=== PATIENT | female | born 1975 | race Caucasian/White ===

== ENCOUNTER 2018-02-28 08:31 | Day surgery (SDC) | payer OTHER, MEDICAID, SELFPAY ==
--- NOTE | 2018-02-28 | IMM_PTH ---
PATIENT: ALVARO VITAL LOC: EN U#:[id number] AGE/SX: 42/F ROOM: RE02/28/[address]: Dr. Antonia Minor MD : 1975 BED: DIS: 02/28/2018 SPEC #: [id number] RECD: 03/01/18 11:00 STATUS: MARICARMEN REZoila #: [id number] MAXWELL: 02/28/18 00:[address]: Antonia Minor DEPT: IMMUNOHISTOCHEMISTRY RECD BY: Glo Cisneros ENTERED: 03/01/18 11:00 SP TYPE: IMMUNO OTHR DR: Dr. Carlos Shultz MD Tissues: A - Stomach, NOS Procedures: H Pylori (initial) PHYSICIAN & INSTITUTION [place] [id number] SPECIMEN INFORMATION: Tissue Source: A ? Antrum biopsy Clinical Info: Gastric reflux, abdomen cramping, diarrhea Specimen Number: [id number] CPT code: 02098 METHODOLOGY: Deparaffinized sections of prefer/formalin-fixed tissue or PAP/DQ stained slides are incubated with monoclonal/polyclonal antibodies/oligonucleotide probes. Localization is made via biotin free immunoperoxidase method. Appropriate controls are performed and reacted as expected. Results on target cell population are indicated in the following table: RESULTS: ANTIBODY / CLONE RESULT Block A H Pylori (polyclonal) negative These tests were developed and their performance characteristics determined by [facility]. They may not have been cleared or approved by the U.S. Food and Drug Administration. The FDA has determined that such clearance or approval is not necessary. INTERPRETATION: A. Antrum, biopsy: Negative for Helicobacter pylori organisms. SJ:claritza 03/02/18
--- NOTE | 2018-02-28 | GASB_PTH ---
PATIENT: ALVARO VITAL LOC: EN U#:[id number] AGE/SX: 42/F ROOM: RE02/28/[address]: Dr. Antonia Minor MD : 1975 BED: DIS: 02/28/2018 SPEC #: [id number] RECD: 02/28/18 11:36 STATUS: MARICARMEN LIZZ #: [id number] MAXWELL: 02/28/18 00:[address]: Antonia Minor DEPT: SURGICAL PATHOLOGY RECD BY: Jabari Majano ENTERED: 02/28/18 11:37 SP TYPE: Gastric Bx OTHR DR: Dr. Carlos Shultz MD Tissues: A - Gastric mucous membrane B - Gastric mucous membrane C - Descending colon D - Sigmoid colon biopsy E - Rectum, NOS Procedures: Special Stain Group II Surgery Specimen Level IV Alcian Blue/PAS (control) HEADER OPERATION: EGD with biopsy; colonoscopy with biopsies PRE-OP DIAGNOSIS: Gastric reflux, abdomen cramping, diarrhea TISSUE SUBMITTED: A ? Antrum biopsy for H. pylori and path, B ? GE junction, C ? Descending colon biopsy, D ? Sigmoid biopsy, E ? Rectal biopsy MICROSCOPIC DIAGNOSIS A. Antrum, biopsy: Mild gastritis. B. GE junction, biopsy: Fragment of gastric mucosa with chronic inflammation. Intestinal metaplasia (goblet cell metaplasia) is not identified. See comment. C. Descending colon, biopsy: Fragment of colonic mucosa, no pathologic diagnosis. D. Sigmoid colon, biopsy: Fragment of colonic mucosa, no pathologic diagnosis. E. Rectal biopsy: Fragment of colonic mucosa, no pathologic diagnosis. SJ:claritza 03/01/18 COMMENT A. The results of immunohistochemistry for Helicobacter pylori will be reported separately ([id number]). B. Alcian blue/PAS stain with matched control is used in the evaluation of the specimen. MICROSCOPIC DESCRIPTION Slides are reviewed. A. The specimen shows fragments of gastric mucosa with chronic inflammatory cell infiltrates in the lamina propria consisting of lymphocytes and plasma cells, consistent with mild chronic gastritis. A minute lymphoid aggregate is also noted, favor benign. GROSS DESCRIPTION A - Received in fixative is one container labeled with the patient's name and designated antrum biopsy. The specimen consists of one irregular fragment of light muhammad soft tissue that measures 0.5 x 0.3 x 0.1 cm. The specimen is totally submitted in one cassette. B - Received in fixative is one container labeled with the patient's name and designated GE junction. The specimen consists of one irregular fragment of light muhammad soft tissue that measures 0.3 x 0.3 x 0.1 cm. The specimen is totally submitted in one cassette. C - Received in fixative is one container labeled with the patient's name and designated descending colon biopsy. The specimen consists of one irregular fragment of light muhammad soft tissue that measures 0.3 x 0.3 x 0.1 cm. The specimen is totally submitted in one cassette. D - Received in fixative is one container labeled with the patient's name and designated sigmoid biopsy. The specimen consists of one irregular fragment of light muhammad soft tissue that measures 0.5 x 0.2 x 0.1 cm. The specimen is totally submitted in one cassette. E - Received in fixative is one container labeled with the patient's name and designated rectal biopsy. The specimen consists of one irregular fragment of light muhammad soft tissue that measures 0.3 x 0.2 x 0.1 cm. The specimen is totally submitted in one cassette. / SJ:rg 02/28/18 TC:5 CPT: 74911 x5, 15042
[2018-02-28 08:45] VITALS: BP 129/68; PULSE 80; RESP 20; TEMP 36.4; O2SAT 97; BMI 35.9
[2018-02-28 10:50] VITALS: BP 129/68; BP 146/80; PULSE 76; RESP 16; TEMP 36.3; O2SAT 97
--- NOTE | 2018-02-28 10:54 | PCM.OPRPT ---
Report of Operation Date of Procedure: 02/28/18 Pre-Operative Diagnosis: Epigastric pain, abdominal cramping, diarrhea Post-Operative Diagnosis: Bile reflux in the stomach, mild gastritis/GERD, internal/external hemorrhoids grossly normal colon Surgery/Procedure Performed:: EGD with biopsy, colonoscopy with random biopsies due to diarrhea Type of Anesthesia:: AD Anesthesiologist: Ed nAgel Specimen's removed: 1. Antral biopsy, 2. GE junction, 3. Random biopsy of the descending colon, 4. Random biopsy of sigmoid colon, 5. Random biopsy of the rectum. Estimated Blood Loss (mL): Minimal Description of Procedure: Procedure: EGD with biopsy After obtaining informed consent, the endoscope was passed under direct visualization. Throughout the procedure, patient's blood pressure, pulse, oxygen saturations were monitored continuously by anesthesia. The endoscope was introduced through the mouth and advanced to the 2nd part of the duodenum. The upper GI endoscopy was accomplished without difficulty. Patient tolerated procedure well. Findings: Mild erythematous mucosa found gastric body and antrum. Also mild mucosal change at the GE junction was noted. Patient also had bile reflux into her antrum. Biopsies were taken with cold biopsy for histology of the antrum and GE junction. Estimated blood loss was minimal. The duodenum was normal. Impression: 1. Bile reflux 2. Erythematous mucosa in the antrum and body. Biopsied. 3. Normal examined duodenum Recommendations: Await biopsies Continue PPI Will start Carafate 1 g p.o. 4 times daily ?1 month Procedure: Colonoscopy with biopsy After reviewing the risks benefits, the patient was deemed in satisfactory condition to undergo procedure. After obtaining informed consent, the scope was passed under direct visualization. Throughout the procedure, the patient's blood pressure pulse and position saturations were monitored continuously anesthesia. The colonoscope was introduced through the anus and advanced to the cecum, identified by IC valve, unable to intubate the cecum. The patient tolerated procedure well. Quality of bowel prep was fair. Findings: The perianal and digital rectal exam revealed internal and external hemorrhoids. Unable to intubate the cecum due to likely looping of the scope; however, the colon (entire examined portion) appeared grossly normal. Pain random biopsies with cold forceps in the descending, sigmoid, rectum due to history of diarrhea Retroflexed view of the distal rectum and anal verge told mild internal hemorrhoids Impression: 1. The entire colon is normal. 2. The distal rectal and anal verge were normal on retroflexed view. Recommendations: Await biopsies Will offer patient barium enema at the future if she would want it since we are unable to see the cecum; however, I am not sure that this will give us any more information about her abdominal cramping/diarrhea as is able to see a little beyond the ileocecal valve just was not able to examine the cecum well. - Complications none
[2018-02-28 10:55] VITALS: BP 100/39; BP 129/68; PULSE 75; RESP 16; O2SAT 100
[2018-02-28 11:00] VITALS: BP 105/58; BP 129/68; PULSE 66; RESP 16; O2SAT 98
[2018-02-28 11:07] VITALS: BP 106/65; BP 129/68; PULSE 73; RESP 16; TEMP 36.3; O2SAT 100
[2018-02-28 11:35] VITALS: BP 129/68
== END 2018-02-28 11:36 | disposition home or self-care (01) ==
LOC: EN 08:33 → AC 08:34
PROVIDERS: Family Provider Family Medicine; PCP Family Medicine; Visit Provider Surgery
PROC: 0DJD8ZZ Inspection of Lower Intestinal Tract, Via Natural or Artificial Opening Endoscopic (ICD-10-PCS; CPT 45378; principal; 2018-02-28 09:55)
DX: K29.70 Gastritis, unspecified, without bleeding (principal); K21.9 Gastro-esophageal reflux disease without esophagitis; K64.8 Other hemorrhoids; K64.4 Residual hemorrhoidal skin tags; M06.9 Rheumatoid arthritis, unspecified; J45.909 Unspecified asthma, uncomplicated; F32.9 Major depressive disorder, single episode, unspecified; F41.9 Anxiety disorder, unspecified; M79.7 Fibromyalgia; E03.9 Hypothyroidism, unspecified; Z86.2 Personal history of diseases of the blood and blood-forming organs and certain disorders involving the immune mechanism; Z79.899 Other long term (current) drug therapy; F17.200 Nicotine dependence, unspecified, uncomplicated
CPT/HCPCS: 43239; 45380; 88305; 88313; 88342; J7120

== ENCOUNTER 2018-07-27 10:19 | Emergency (ER) | payer OTHER, MEDICAID, SELFPAY ==
[2018-07-27 10:20] VITALS: BP 137/80; PULSE 87; RESP 18; TEMP 36.6; O2SAT 96; BMI 37.4
--- NOTE | 2018-07-27 10:35 | RAD_ITS ---
STUDY: X-RAY - RIGHT TIBIA AND FIBULA REASON FOR EXAM: Female, 42 years old. Pain. Injury TECHNIQUE: 2 view(s) of the tibia and fibula were obtained. COMPARISON: None. FINDINGS: Normal visualized tibia. There is fragmentation of the lateral malleolus with prior fracture or impingement. No acute fracture. The soft tissue structures are unremarkable. RAD/Tibia & Fibula 2 Views IMPRESSION: No acute abnormality. Electronically Signed: Davion Francis MD at 11:28 EST , Service support ,
--- NOTE | 2018-07-27 10:35 | RAD_ITS ---
STUDY: X-RAY - LEFT TIBIA AND FIBULA REASON FOR EXAM: Female, 42 years old. Pain. Injury TECHNIQUE: 2 view(s) of the tibia and fibula were obtained. COMPARISON: None. FINDINGS: Normal visualized tibia. There is fragmentation of the lateral malleolus with prior fracture or impingement. No acute fracture. The soft tissue structures are unremarkable. RAD/Tibia & Fibula 2 Views IMPRESSION: No acute abnormality. Electronically Signed: Davion Francis MD at 11:26 EST , Service support ,
--- NOTE | 2018-07-27 10:36 | RAD_ITS ---
STUDY: X-RAY - UNILATERAL RIBS ( RIGHT ) WITH CHEST REASON FOR EXAM: Female, 42 years old. Pain. TECHNIQUE - RIBS: 4 view(s) of the ribs. TECHNIQUE - CHEST: Single frontal view of the chest. COMPARISON: Chest x-ray June 25, 2016 FINDINGS - RIBS: Normal visualized ribs without a demonstrated fracture. FINDINGS - CHEST: The lungs are clear and expanded. There is no demonstrated pleural abnormality. Normal size heart. Normal mediastinum and leighton. Normal visualized pulmonary arteries. Normal visualized aortic arch and descending thoracic aorta. Normal visualized thoracic spine. Normal visualized ribs, clavicles, and shoulders. There is no demonstrated abnormality of the visualized soft tissue structures of the upper abdomen. RAD/Ribs Uni Min 3V w/PA Chest IMPRESSION: RIBS: Normal x-ray examination of the ribs. CHEST: Normal x-ray examination of the chest. Electronically Signed: Davion Francis MD at 11:31 EST , Service support ,
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
[2018-07-27] MEDS: HYDROcodone Bitartrate/Apap 5/325 Tablet PO (11:09)
[2018-07-27] MEDS: Naproxen 500 MG Tablet PO (11:09)
[2018-07-27 12:29] VITALS: BP 111/71; PULSE 72; RESP 21; O2SAT 98
== END 2018-07-27 12:30 | disposition home or self-care (01) ==
LOC: ED 11:12
PROVIDERS: Emergency Provider Emergency Medicine; Family Provider Family Medicine; PCP Family Medicine
DX: S80.11XA Contusion of right lower leg, initial encounter (principal); M79.605 Pain in left leg; R07.9 Chest pain, unspecified; V09.9XXA Pedestrian injured in unspecified transport accident, initial encounter; Y93.9 Activity, unspecified; Y92.9 Unspecified place or not applicable; J45.909 Unspecified asthma, uncomplicated; M06.9 Rheumatoid arthritis, unspecified; M79.7 Fibromyalgia; Z79.899 Other long term (current) drug therapy; F17.200 Nicotine dependence, unspecified, uncomplicated
CPT/HCPCS: 71101; 73590; 99285

== ENCOUNTER 2018-07-30 02:28 | Observation (INO) | payer OTHER, MEDICAID, SELFPAY ==
[2018-07-30] VITALS (20 sets, daily range): BP systolic 118–215; BP diastolic 76–200; PULSE 90–102; RESP 16–24; TEMP 36.7–37.2; O2SAT 92–98; BMI 37.4; BMI 36.6
--- NOTE | 2018-07-30 02:45 | RAD_ITS ---
STUDY: X-RAY CHEST REASON FOR EXAM: Female, 42 years old. Chest pain. TECHNIQUE: Single AP portable view of the chest. COMPARISON: Chest radiograph dated June 25, 2016. FINDINGS: The lungs are expanded. There is mild prominence of the bronchovascular markings particularly at the lung bases. There is no demonstrated pleural abnormality. There is borderline cardiomegaly. Normal mediastinum and leighton. There is prominence of the pulmonary hilar arteries without peripheral pulmonary vascular congestion. Normal visualized aortic arch and descending thoracic aorta. Normal visualized thoracic spine. Normal visualized ribs, clavicles, and shoulders. There is no demonstrated abnormality of the visualized soft tissue structures of the upper abdomen. RAD/Chest 1 View (Portable) IMPRESSION: Borderline cardiomegaly and mild pulmonary congestion. Electronically Signed: Sri Craven MD at 3:25 EST , Service support ,
[2018-07-30] MEDS: MethylPREDNISolone 125 MG/2 ML Vial IV (02:55)
[2018-07-30] MEDS: Albuterol 2.5 MG/3 ML VIAL.NEB. INHALATION ×4 (02:55→17:03)
[2018-07-30] MEDS: Ketorolac 30 MG/ML Syringe IV (02:55)
[2018-07-30] MEDS: Ipratropium/Albuterol Sulfate 3 ML AMPUL.NEB INHALATION ×7 (02:55→22:54)
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
[2018-07-30 04:17] LABS: Absolute Lymphocyte Count 0.58 X10^3/ul (0.83-4.51); Absolute Neutrophil Count 5.7 X10^3/uL (2.0-7.7); Basophil# 0.01 X10^3/uL; Basophil% 0.2 % (0-1); Differential Indicated SCAN CRITERIA MET; Eosinophil# 0.07 X10^3/uL; Eosinophils% 1.1 % (0-5); Hematocrit 33.5 % (37-47); Hemoglobin 10.7 g/dl (12.0-15.0); Lymphocyte # 0.58 X10^3/ul (4.0); Lymphocyte % 8.8 % (19-41); Mean Corp Hgb Conc 31.9 g/gl (32-36); Mean Corpuscular Hgb 29.3 pg (27.0-32.0); Mean Corpuscular Volume 91.8 fL (81-99); Mean Platelet Vol. 10.1 fl (6.2-12.0); Monocyte# 0.18 X10^3/uL; Monocyte% 2.7 % (0-10); Neutrophil # 5.72 X10^3/uL (2.7-7.7); Neutrophil % 86.9 % (47-70); POSITIVE COUNT NO; POSITIVE DIFFERENTIAL YES; POSITIVE MORPHOLOGY NO; Platelet Count 199 K/mm3 (150-450); RBC Distribution Width CV 15.8 % (11.6-14.6); RBC Distribution Width SD 51.5 fl (35.1-43.9); Red Blood Count 3.65 M/mm3 (4.2-5.4); White Blood Count 6.6 K/mm3 (4.4-11.0)
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
[2018-07-30 04:26] LABS: BUN 9 mg/dL (7-18); Glucose 112 mg/dL (74-106)
[2018-07-30 04:27] LABS: Anion Gap 8 (5-15); BUN/Creat Ratio 9.3 RATIO (10-20); Calcium,Total 8.8 mg/dL (8.5-10.1); Chloride 110 mmol/L (98-107); Creatinine, Serum 0.96 mg/dL (0.55-1.02); EST Glomerular Filtration Rate 67 mL/min (>60); Est Glom Filt Rate - Afr Amer 81 mL/min (>60); Estimated Creatinine Clearance 68.69 ml/min; Potassium 3.8 mmol/L (3.5-5.1); Sodium Level 142 mmol/L (136-145)
[2018-07-30 04:56] LABS: Differential Comment SCANNED
--- NOTE | 2018-07-30 05:44 | EKG12_ITS ---
Test Reason : SOB Blood Pressure : / mmHG Vent. Rate : 095 BPM Atrial Rate : 095 BPM P-R Int : 146 ms QRS Dur : 088 ms QT Int : 368 ms P-R-T Axes : 024 049 -72 degrees QTc Int : 462 ms Normal sinus rhythm ST & T wave abnormality, consider inferior ischemia ST & T wave abnormality, consider anterolateral ischemia Prolonged QT Abnormal ECG When compared with ECG of 19-JUN-2016 02:03, T wave inversion now evident in Anterolateral leads Confirmed by KENDRA MARSHALL, IGGY ([id number]), manager statistical BROCK MINA ([id number]) on 08/01/2018 11:35:38 AM Referred By: HOSP Confirmed By:IGGY GARDNER MD
[2018-07-30] MEDS: Levothyroxine 100 MCG Tablet PO (06:21)
[2018-07-30] MEDS: oxyCODONE 5 MG Tablet PO ×4 (06:21→21:19)
[2018-07-30] MEDS: CLARIFY ORDER 1 EACH NOTE (06:30)
[2018-07-30 06:54] LABS: T4 Free Direct 1.68 ng/dL (0.76-1.46)
[2018-07-30] MEDS: Celecoxib 200 MG Capsule PO (09:52)
[2018-07-30] MEDS: Furosemide 20 MG Tablet PO (09:52)
[2018-07-30] MEDS: Pantoprazole Sodium 40 MG Tablet PO (09:52)
[2018-07-30] MEDS: buPROPion (SR) 150 MG Tablet.SA PO ×2 (09:52→22:27)
[2018-07-30] MEDS: Gabapentin 300 MG Capsule 900 MG PO ×3 (09:52→17:17)
[2018-07-30] MEDS: 0.9% NaCl Peripheral Flush Adult/Peds IV ×2 (11:58→17:18)
[2018-07-30] MEDS: hydrOXYzine PAM 25 MG Capsule PO (17:18)
--- NOTE | 2018-07-30 20:09 | PCM.HOSP.N ---
Hospitalist Note Patient was seen and examined briefly today, she is still having expiratory wheezes and she is still requiring nasal cannula O2 at this time. I will continue the patient's present treatment and add oral Zithromax due to the fact she is complaining of green sputum production. Patient's O2 sat will be monitored. Chest x-ray will be repeated tomorrow
[2018-07-30] MEDS: Ondansetron 4 MG/2 ML Vial IV (21:16)
[2018-07-30] MEDS: Acetaminophen 325 MG Tablet 650 MG PO (21:20)
[2018-07-30] MEDS: traZODone 100 MG Tablet PO (21:20)
[2018-07-31] VITALS (13 sets, daily range): BP systolic 135–167; BP diastolic 70–96; PULSE 89–104; RESP 15–23; TEMP 36.8–37.2; O2SAT 88–97
[2018-07-31] MEDS: oxyCODONE 5 MG Tablet PO ×3 (02:32→19:48)
[2018-07-31] MEDS: hydrOXYzine PAM 25 MG Capsule PO ×2 (02:32→17:39)
[2018-07-31] MEDS: Ipratropium/Albuterol Sulfate 3 ML AMPUL.NEB INHALATION ×6 (03:12→23:35)
[2018-07-31] MEDS: Acetaminophen 325 MG Tablet 650 MG PO ×2 (05:33→17:27)
[2018-07-31] MEDS: Levothyroxine 100 MCG Tablet PO (05:33)
[2018-07-31] MEDS: Enoxaparin 40 MG/0.4 ML Syringe SC (05:34)
--- NOTE | 2018-07-31 07:18 | RAD_ITS ---
STUDY: X-RAY CHEST REASON FOR EXAM: Female, 42 years old. Shortness of breath, asthma exacerbation. TECHNIQUE: PA and lateral chest COMPARISON: 07/30/2018 chest x-ray FINDINGS: The lungs are clear and expanded. Normal cardiomediastinal silhouette, leighton and pleural margins. No acute osseous or upper abdominal process. RAD/Chest PA and Lateral IMPRESSION: No acute cardiopulmonary process. Electronically Signed: Dario Magdaleno, at 13:50 EST Tel , Service support ,
[2018-07-31] MEDS: Gabapentin 300 MG Capsule 900 MG PO ×3 (08:14→17:28)
[2018-07-31] MEDS: buPROPion (SR) 150 MG Tablet.SA PO ×2 (09:50→22:58)
[2018-07-31] MEDS: Azithromycin 250 MG Tablet 500 MG PO (09:54)
[2018-07-31] MEDS: Pantoprazole Sodium 40 MG Tablet PO (09:54)
[2018-07-31] MEDS: Furosemide 20 MG Tablet PO (09:56)
[2018-07-31] MEDS: Celecoxib 200 MG Capsule PO (09:57)
[2018-07-31] MEDS: 0.9% NaCl Peripheral Flush Adult/Peds IV ×3 (11:07→22:59)
--- NOTE | 2018-07-31 19:41 | PCM.PROGNOTE ---
Patient Problems: Active and Suspected Problems (Last Reviewed 02/15/18 @ 13:12 by Pili Webb) Asthma exacerbation (Acute) Subjective: Patient was seen and examined today, she still required supplemental oxygen during ambulation, patient still had audible expiratory wheezes bilaterally but she appeared more comfortable today. - Physical Exam General: Alert, Oriented x3, Cooperative, No apparent distress, Well developed HEENT: Atraumatic, PERRLA, EOMI, Normocephalic Oral: Moist Mucosa Neck: Supple, Trachea Midline, Thyroid Normal Size and Texture Lungs: Normal air movement, No rhonchi, No rales, Wheezes - High-pitched expiratory wheezes are noted bilaterally scattered throughout both lungs Cardiovascular: Regular rate, Regular Rhythm, Normal S1, Normal S2, No murmurs, No Ectopic Activity, PMI Normal, No rub noted, No Gallop Abdomen: Bowel Sounds Present, Soft, Non Tender, Non-Distended, No hernias noted Extremities: No clubbing, No cyanosis, No edema, Capillary Refill Less than 3 Seconds Skin: No rashes, No breakdown Musculoskeletal: No Tenderness to Palpation of Joints or Extremities Neurological: Cranial nerves II-XII grossly intact, Neuro grossly intact, Sensory exam intact to light touch and pain, Coordination normal Psych/Mental Status: Normal Affect, Appropriate, Alert and oriented to time, place, person, mood and affect Vital Signs Temp Pulse Resp BP Pulse Ox 98.9 F 102 H 18 138/70 H 94 07/31/18 16:25 07/31/18 16:25 07/31/18 16:25 07/31/18 16:25 07/31/18 16:25 Oxygen Flow Rate (L/min) 93 Oxygen Delivery Method Room Air Weight: 99.79 kg Body Mass Index (BMI) 36.6 Intake and Output for Last 24 Hours 07/29/18 07/30/18 07/31/18 23:59 23:59 23:59 Intake Total 1800 / 1800 2650 / 2650 Balance 1800 / 1800 2650 / 2650 Microbiology Past 72 Hours 07/30/18 08:10 Influenza Types A,B Direct FA ([facility]) - Final Mucosa - Nasopharyngeal Medical Necessity - Tobacco Use Smoking Status: Current every day smoker Assessment/Plan All Active Problems (Last Reviewed 02/15/18 @ 13:12 by Pili Webb) Asthma exacerbation (Acute) #1 asthma exacerbation-patient will continue on her present medications including IV corticosteroids, aerosol treatments, and oral Zithromax., She will be reassessed tomorrow #2 hypoxia-patient's pulse ox will be monitored, she will be reassessed tomorrow, she may need home oxygen for short period of time #3 Fibromyalgia-patient is to continue her current medications #4 anxiety-patient is to remain on her current medications #5 depression-patient is to remain on her current medication #6 hypothyroidism-patient is to remain on Synthroid Code Visit OBSV E&M: 68090 Subsequent observation care L2
[2018-07-31] MEDS: traZODone 100 MG Tablet PO (22:59)
[2018-08-01] VITALS (8 sets, daily range): BP systolic 102–128; BP diastolic 59–79; PULSE 91–98; RESP 16–18; TEMP 36.3–36.9; O2SAT 91–93
[2018-08-01] MEDS: Acetaminophen 325 MG Tablet 650 MG PO (02:55)
[2018-08-01] MEDS: Ipratropium/Albuterol Sulfate 3 ML AMPUL.NEB INHALATION ×3 (03:20→10:43)
[2018-08-01] MEDS: Enoxaparin 40 MG/0.4 ML Syringe SC (05:14)
[2018-08-01] MEDS: hydrOXYzine PAM 25 MG Capsule PO (05:14)
[2018-08-01] MEDS: 0.9% NaCl Peripheral Flush Adult/Peds IV (05:15)
[2018-08-01] MEDS: Levothyroxine 100 MCG Tablet PO (05:15)
[2018-08-01] MEDS: Gabapentin 300 MG Capsule 900 MG PO (07:34)
--- NOTE | 2018-08-01 10:26 | DCINST_ITS ---
- Discharge Diagnoses Current Active Problems: Current Active and Chronic Problems (Last Reviewed 02/15/18 @ 13:12 by Pili Webb) Asthma exacerbation (Acute) Fibromyalgia (Chronic) Anxiety and depression (Chronic) You will use the following diet at home:: No restrictions Your food should be the consistency of: Regular Your liquids should be the consistency of: Regular/Thin Discharge Activity: Return to Normal Activity Weight Bearing Status: Full weight bearing Additional Instructions: don't smoke Allergies/Adverse Reactions: Allergies fentanyl Allergy (Verified 07/30/18 02:33) Unknown haloperidol [From Haldol] Allergy (Verified 07/30/18 02:33) makes me angry quetiapine fumarate [From Seroquel] Allergy (Verified 07/30/18 02:33) Anaphylaxis Medications to take at Discharge Albuterol Inhaler [Ventolin Hfa] 1 - 2 puff INHALATION Q4H PRN PRN 06/26/16 Gabapentin [Neurontin] 900 mg PO TIDCM 06/26/16 hydrOXYzine pamoate capsule [Vistaril pamoate capsule] 25 mg PO TID 02/17/17 furosemide 20 mg tablet 20 mg PO QDAY 02/15/18 levothyroxine 88 mcg tablet 100 mcg PO DAILY tab 02/15/18 mometasone-formoterol HFA 100 mcg-5 mcg/actuation aerosol inhaler 2 puff INHALATION BID 02/15/18 omeprazole 40 mg capsule,delayed release 40 mg PO QDAY 02/15/18 paroxetine 10 mg tablet 40 mg PO DAILY tab 02/15/18 Bupropion HCl [Wellbutrin Sr] 150 mg PO BID 07/30/18 Celecoxib 200 mg PO DAILY 07/30/18 Nabumetone [Relafen] 750 mg PO BID 07/30/18 traZODone [Desyrel] 100 mg PO QHS PRN PRN 07/30/18 Acetaminophen [Tylenol Tablet] 650 mg PO Q6H PRN PRN tablet 08/01/18 Prednisone 10 mg PO UD #30 tab 08/01/18 The following prescriptions were given: Prednisone 10 mg PO UD #30 tab Primary Care Physician: Carlos Shultz MD [Primary Care Provider] - Please follow up with your Primary Care Physician in: in one week Test Results: Test results from this visit will be discussed in further detail at your follow- up appointment, if applicable.
[2018-08-01] MEDS: Furosemide 20 MG Tablet PO (10:45)
[2018-08-01] MEDS: Celecoxib 200 MG Capsule PO (10:45)
[2018-08-01] MEDS: buPROPion (SR) 150 MG Tablet.SA PO (10:45)
[2018-08-01] MEDS: Pantoprazole Sodium 40 MG Tablet PO (10:46)
[2018-08-01] MEDS: Azithromycin 250 MG Tablet 500 MG PO (10:47)
--- NOTE | 2018-08-03 09:39 | DS.PCM_ITS ---
Discharge Date and Diagnosis Date of Admission: 07/30/18 Date of Discharge: 08/01/18 - Primary Discharge Diagnosis #1 asthma exacerbation #2 hypoxia #3 Fibromyalgia #4 anxiety #5 depression #6 hypothyroidism - Secondary Discharge Diagnosis Chronic Problems (Last Reviewed 02/15/18 @ 13:12 by Pili Webb) Fibromyalgia (Chronic) Anxiety and depression (Chronic) Rheumatoid arthritis (Chronic) Asthma (Chronic) Hospital Course and Treatment Operations: None Procedures: None Summary of Care Provided: The patient is a 42 year old F who was seen in the emergency room at [facility] with chief complaint of shortness of breath. Patient has a history of asthma and she smokes. Workup in the emergency room included a portable chest x-ray which showed borderline cardiomegaly and what was read out to be mild pulmonary vascular congestion. Patient's pulse ox on room air was charted as 98% but the patient was audibly wheezing and appeared short of breath and she was placed on nasal cannula O2. Patient was given IV corticosteroids and aerosol treatments, she was placed and observation status on MedSurg 3 and the aerosol treatments and IV Solu-Medrol was continued. Patient also complained of green sputum production, she was placed on p.o. Zithromax also. Patient improved over the next few days, she required O2 due to hypoxia on ambulation but at the time of discharge, she required no oxygen. On 08/01/18, patient was seen and examined and felt to be in stable condition for discharge home Physical exam: On examination she appeared in good health and spirits. Vital signs as documented. Skin warm and dry and without overt rashes. Neck without JVD. Lungs-mild scattered expiratory wheezes were noted which were not severe.. Heart exam notable for regular rhythm, normal sounds and absence of murmurs, rubs or gallops. Abdomen unremarkable and without evidence of organomegaly, masses, or abdominal aortic enlargement. Extremities nonedematous. Neuro: Cranial nerves II through XII are grossly intact, no focal motor deficits are noted. Psych: Patient was alert and oriented x3 and appropriate, she did not appear depressed or anxious - Physical Exam Vital Signs Temp Pulse Resp BP Pulse Ox 98.5 F 95 18 126/66 H 93 08/01/18 11:41 08/01/18 11:41 08/01/18 11:41 08/01/18 11:41 08/01/18 11:41 Oxygen Flow Rate (L/min) 1 Oxygen Delivery Method Room Air Weight: 99.79 kg Body Mass Index (BMI) 36.6 Intake and Output for Last 24 Hours 08/01/18 08/02/18 08/03/18 23:59 23:59 23:59 Intake Total 200 / 200 Balance 200 / 200 Discharge Activity: Return to Normal Activity Weight Bearing Status: Full weight bearing Home Medications: Medications to take at Discharge Albuterol Inhaler [Ventolin Hfa] 1 - 2 puff INHALATION Q4H PRN PRN 06/26/16 Gabapentin [Neurontin] 900 mg PO TIDCM 06/26/16 hydrOXYzine pamoate capsule [Vistaril pamoate capsule] 25 mg PO TID 02/17/17 furosemide 20 mg tablet 20 mg PO QDAY 02/15/18 levothyroxine 88 mcg tablet 100 mcg PO DAILY tab 02/15/18 mometasone-formoterol HFA 100 mcg-5 mcg/actuation aerosol inhaler 2 puff INHALATION BID 02/15/18 omeprazole 40 mg capsule,delayed release 40 mg PO QDAY 02/15/18 paroxetine 10 mg tablet 40 mg PO DAILY tab 02/15/18 Bupropion HCl [Wellbutrin Sr] 150 mg PO BID 07/30/18 Celecoxib 200 mg PO DAILY 07/30/18 Nabumetone [Relafen] 750 mg PO BID 07/30/18 traZODone [Desyrel] 100 mg PO QHS PRN PRN 07/30/18 Acetaminophen [Tylenol Tablet] 650 mg PO Q6H PRN PRN tablet 08/01/18 Prednisone 10 mg PO UD #30 tab 08/01/18 Following Prescrptions Were Given to Patient: Prednisone 10 mg PO UD #30 tab Primary Care Physician: Carlos Shultz MD [Primary Care Provider] - Please follow up with your Primary Care Physician in: in one week Disposition: Home Minutes spent on discharge:: 31 Patient Condition:: Stable Medical Necessity - Tobacco Use Smoking Status: Current every day smoker Meaningful Use Info Meaningful Use Diagnoses (Choose all that apply): None applicable Code Visit OBSV E&M: 31854 Observation care discharge
== END 2018-08-01 12:05 | disposition home or self-care (01) ==
LOC: ED 02:44 → MS3 04:36
PROVIDERS: Admitting Provider Internal Medicine; Emergency Provider Emergency Medicine; Family Provider Family Medicine; PCP Family Medicine; Visit Provider Internal Medicine
DX: J45.901 Unspecified asthma with (acute) exacerbation (principal); M79.7 Fibromyalgia; R09.02 Hypoxemia; F41.9 Anxiety disorder, unspecified; F32.9 Major depressive disorder, single episode, unspecified; E03.9 Hypothyroidism, unspecified; M06.9 Rheumatoid arthritis, unspecified; Z79.899 Other long term (current) drug therapy; F17.200 Nicotine dependence, unspecified, uncomplicated; K29.70 Gastritis, unspecified, without bleeding
CPT/HCPCS: 71045; 71046; 80048; 84439; 84443; 85025; 87804; 93005; 94640; 94667; 94668; 96372; 96374; 96375; 96376; 97802; 99218; 99284; A4216; G0378; J2405

== ENCOUNTER → 2018-08-15 08:51 | Outpatient (CLI) | payer OTHER, MEDICAID, SELFPAY ==
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
--- OUTSIDE RECORDS SUMMARY | 2018-10-10 14:40 | XMS RPT_ITS ---
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 cm. The specimen is totally submitted in one cassette. D - Received in fixative is one container labeled with the patient's name and designated sigmoid biopsy. The specimen consists of one irregular fragment of light muhammad soft tissue that measures 0.5 x 0.2 x 0.1 cm. The specimen is totally submitted in one cassette. E - Received in fixative is one container labeled with the patient's name and designated rectal biopsy. The specimen consists of one irregular fragment of light muhammad soft tissue that measures 0.3 x 0.2 x 0.1 cm. The specimen is totally submitted in one cassette. / LUIS ALBERTO:claritza 02/28/18 TC:5 CPT: 33918 x5, 21315 HEADER OPERATION: EGD with biopsy; colonoscopy with biopsies PRE-OP DIAGNOSIS: Gastric reflux, abdomen cramping, diarrhea TISSUE SUBMITTED: A Antrum biopsy for H. pylori and path, B GE junction, C Descending colon biopsy, D Sigmoid biopsy, E Rectal biopsy MICROSCOPIC DESCRIPTION Slides are reviewed. A. The specimen shows fragments of gastric mucosa with chronic inflammatory cell infiltrates in the lamina propria consisting of lymphocytes and plasma cells, consistent with mild chronic gastritis. A minute lymphoid aggregate is also noted, favor benign. MICROSCOPIC DIAGNOSIS A. Antrum, biopsy: Mild gastritis. B. GE junction, biopsy: Fragment of gastric mucosa with chronic inflammation. Intestinal metaplasia (goblet cell metaplasia) is not identified. See comment. C. Descending colon, biopsy: Fragment of colonic mucosa, no pathologic diagnosis. D. Sigmoid colon, biopsy: Fragment of colonic mucosa, no pathologic diagnosis. E. Rectal biopsy: Fragment of colonic mucosa, no pathologic diagnosis. LUIS ALBERTO:claritza 03/01/18 Signed Dennis Marrero 03/01/18 <signature on file> Performed By: #### PGASB #### [facility] [place], [address] IMMUNOHISTOCHEMISTRY Observed: 02/28/2018 Status: F Source: [place] 12:00 AM [facility] REPOSITORY Patient: ALVARO VITAL : 1975 (42/F) Acct Num: [id number] Phys: Iván MARSHALL,[facility] Unit Num: [id number] Loc: EN Specimen: [id number] Received: 03/01/18 - 1100 Spec Type: IMMUNO TISSUES TISSUES: A. Stomach, NOS SPECIMEN INFORMATION: Tissue Source: A Antrum biopsy Clinical Info: Gastric reflux, abdomen cramping, diarrhea Specimen Number: [id number] CPT code: 30831 METHODOLOGY: Deparaffinized sections of prefer/formalin-fixed tissue or PAP/DQ stained slides are incubated with monoclonal/polyclonal antibodies/oligonucleotide probes. Localization is made via biotin free immunoperoxidase method. Appropriate controls are performed and reacted as expected. Results on target cell population are indicated in the following table: RESULTS: ANTIBODY / CLONE RESULT Block A H Pylori (polyclonal) negative These tests were developed and their performance characteristics determined by [facility]. They may not have been cleared or approved by the U.S. Food and Drug Administration. The FDA has determined that such clearance or approval is not necessary. INTERPRETATION: A. Antrum, biopsy: Negative for Helicobacter pylori organisms. SJ:claritza 03/02/18 PHYSICIAN AND INSTITUTION [place] [address] Signed Dennis Marrero 03/02/18 <signature on file> Performed By: #### PIMM #### [facility] [address] [place] [address]. [place], [place], [id number] FOLLOW UP (RHEUMATOLOGY) Observed: 02/19/2018 Status: UNK Source: [place] 5:36 PM [facility] REPOSITORY Chief Complaint RA follow up History of Present Illness Comorbid Illnesses: Fibromyalgia. Interval Events: still feels none of the meds are helping. Having trouble with leg pain primarily. Symptoms: Associated Symptoms: fatigue. Systemically the patient has positive rheumatoid factor testing. Activities: able to do activities of daily living with limitations. Medications: the patient is adherent with her medication regimen. She denies medication side effects. Review of Systems Constitutional: no fever, no chills, not feeling poorly, not feeling tired, no recent weight gain and no recent weight loss. ENT: no earache, no hearing loss, no nosebleeds, no nasal discharge, no sore throat and no hoarseness. Cardiovascular: the heart rate was not slow, the heart rate was not fast, no chest pain, no palpitations, no intermittent leg claudication and no lower extremity edema. Respiratory: no cough, not coughing up sputum and no wheezing that is consistent with asthma. Gastrointestinal: no abdominal pain, no constipation, no melena, no nausea, no diarrhea, no vomiting and no blood in stools. Musculoskeletal: arthralgias, myalgias, joint swelling and joint stiffness, but no back pain, no limb pain and no limb swelling. Integumentary: no rashes, no skin lesions, no itching, no skin wound and no dry skin. Neurological: no headache, no confusion, no numbness, no dizziness, no tingling and no fainting. Active Problems Acid reflux (530.81) (K21.9) Anemia (285.9) (D64.9) Asthma (493.90) (J45.909) BMI over 35 Cervical radiculopathy (723.4) (M54.12) Chronic diarrhea (787.91) (K52.9) Depression (311) (F32.9) Esophageal dysphagia (787.20) (R13.10) Fibromyalgia (729.1) (M79.7) Hypothyroidism (244.9) (E03.9) Long-term use of immunosuppressant medication (V58.69) (Z79.899) NSAID long-term use (V58.64) (Z79.1) Peripheral edema (782.3) (R60.9) Rheumatoid arthritis, seropositive (714.0) (M05.9) Past Medical History History of Chronic allergic rhinitis (477.9) (J30.9) History of Encounter for monitoring Arava therapy (V58.83,V58.69) (Z51.81,Z79.899) History of Encounter for monitoring sulfasalazine therapy (V58.83,V58.69) (Z51.81,Z79.899) History of abdominal pain (V13.89) (Z87.898) History of chest pain (V13.89) (Z87.898) History of Need for prophylactic vaccination and inoculation against influenza (V04.81) (Z23) Surgical History History of Section History of Tubal Ligation Family History Family history of diabetes mellitus (V18.0) (Z83.3) Family history of In poor condition Family history of In good condition Family history of cardiac disorder (V17.49) (Z82.49) Social History Born in [place] Current every day smoker (305.1) (F17.200) smoke 1/2 ppd Daily caffeine consumption Exercise frequency (times/week) 3/wk Exercise: Walking Five children General equivalency diploma (GED) Lack of adequate sleep (V69.4) (Z72.820) Lives in [place] No alcohol use No drug use Sleeps less than 6 hours a day Tobacco use current (305.1) (Z72.0) Allergies No Known Drug Allergies Recorded By: Fanny Patel; 01/18/2016 3:17:36 PM Current Meds Omeprazole 40 MG Oral Capsule Delayed Release; TAKE 1 CAPSULE Daily In The Morning Before eating; Therapy: 05Rlq3691 to (Last Rx:24Trj8266) Requested for: 41Tpk5619 Ordered Rx By: Celso Joshi; Dispense: 0 Days ; #:30 Capsule Delayed Release; Refill: 2;For: Acid reflux, Esophageal dysphagia; RADHA = N; Verified Transmission to [facility]; Last Updated By: Chencho DeniseNOWBOX; 01/31/2018 9:12:16 AM PEG 3350/Electrolytes 240 GM Oral Solution Reconstituted; TAKE DIRECTED; Therapy: 61Iex1557 to (Last Rx:09Bov4247) Requested for: 11Dbt0912 Ordered Rx By: Celso Joshi; Dispense: 0 Days ; #:1 X 4000 ML Bottle; Refill: 0;For: Chronic diarrhea; RADHA = N; Verified Transmission to [facility]; Last Updated By: Eileen FoodText; 12/19/2017 10:47:48 AM Gabapentin 300 MG Oral Capsule; TAKE 3 CAPSULES THREE TIMES DAILY; Therapy: 60Nuf7110 to (Evaluate:72Row5106) Requested for: 50Kpb5229; Last Rx:82Sop4999 Ordered Rx By: Bonita Saleem; Dispense: 15 Days ; #:135 Capsule; Refill: 0;For: Fibromyalgia; RADHA = N; Verified Transmission to [facility]; Msg to Pharmacy: needs appointment before any refills after this; Last Updated By: [employer]; 01/31/2018 4:38:15 PM Furosemide 20 MG Oral Tablet; TAKE 1 TABLET DAILY NEEDED; Therapy: 17Aug2017 to (Evaluate:90Ire6403) Requested for: 17Yrt1686; Last Rx:[id number] Ordered Rx By: Bonita Saleem; Dispense: 30 Days ; #:30 Tablet; Refill: 5;For: Peripheral edema; RADHA = N; Verified Transmission to [facility] #[facility]; Last Updated By: [employer]; 01/02/2018 3:57:43 PM Nabumetone 750 MG Oral Tablet; TAKE ONE (1) TABLET BY MOUTH TWICE EVERY DAY NEEDED; Therapy: 01Feb2018 to (Evaluate:31Jul2018) Requested for: 66Ztt7070; Last Rx:94Ffe6299 Ordered Rx By: Bonita Saleem; Dispense: 30 Days ; #:60 Tablet; Refill: 5;For: Rheumatoid arthritis, seropositive; RADHA = N; Verified Transmission to [facility]; Last Updated By: [employer]; 02/01/2018 9:48:10 AM Xeljanz XR 11 MG Oral Tablet Extended Release 24 Hour; Take 1 tablet daily; Therapy: 20Nov2017 to (Evaluate:03Jan2019) Requested for: 08Jan2018; Last Rx:08Jan2018 Ordered Rx By: Bonita Saleem; Dispense: 90 Days ; #:90 Tablet Extended Release 24 Hour; Refill: 3;For: Rheumatoid arthritis, seropositive; RADHA = N; [facility]; Last Updated By: [employer]; 01/08/2018 10:24:02 AM Albuterol Sulfate (2.5 MG/3ML) 0.083% Inhalation Nebulization Solution; Therapy: 77Gam3899 to Recorded Dispense: 0 Days ; #: Sufficient ML; Refill: 0; RADHA = N; Record; Last Updated By: Phyllis Espitia; 10/19/2016 1:53:47 PM Dulera 200-5 MCG/ACT Inhalation Aerosol; 2 (two) Puff two times daily; Therapy: 33Nna3299 to Recorded Rx By: Christo; Dispense: 30 Days ; #:13 AERO; Refill: 0; RADHA = N; Record; Last Updated By: Bonita Saleem; 01/24/2017 3:48:02 PM HydrOXYzine HCl - 25 MG Oral Tablet; Therapy: 05Aug2016 to Recorded Dispense: 30 Days ; #:90 TABS; Refill: 0; RADHA = N; Record; Last Updated By: Bonita Saleem; 01/24/2017 3:48:02 PM Levothyroxine Sodium 88 MCG Oral Tablet; TAKE 1 TABLET DAILY; Therapy: 18Jan2016 to (Evaluate:12Jan2017) Recorded Dispense: 90 Days ; #:90 Tablet; Refill: 3; RADHA = N; Record; Last Updated By: Fanny Patel; 01/18/2016 3:17:36 PM PARoxetine HCl - 10 MG Oral Tablet; Take 1 tablet by mouth daily; Therapy: 24Nov2016 to Recorded Rx By: Lexii; Dispense: 30 Days ; #:30 TABS; Refill: 0; RADHA = N; Record; Last Updated By: Bonita Saleem; 01/24/2017 3:48:02 PM TraZODone HCl - 100 MG Oral Tablet; Therapy: 82Yxm5952 to Recorded Dispense: 30 Days ; #:30 TABS; Refill: 0; RADHA = N; Record; Last Updated By: Bonita Saleem; 01/24/2017 3:48:02 PM Ventolin HFA 108 (90 Base) MCG/ACT Inhalation Aerosol Solution; INHALE 2 PUFFS EVERY 4 HOURS NEEDED; Therapy: 18Jan2016 to Recorded Dispense: 0 Days ; #:5 X 18 GM Inhaler; Refill: 4; RADHA = N; Record; Last Updated By: Fanny Patel; 01/18/2016 3:17:36 PM Wellbutrin XL 150 MG Oral Tablet Extended Release 24 Hour; TAKE 1 TABLET DAILY DIRECTED; Therapy: 39Dug0124 to Recorded Dispense: 0 Days ; #: Sufficient Tablet Extended Release 24 Hour; Refill: 0; ARDHA = N; Record; Last Updated By: Phyllis Espitia; 10/19/2016 1:53:47 PM Vitals Vital Signs Recorded: 19Feb2018 01:14PM Xdpfupafzrh10.4 F, Oral Heart Rate74 Throvgcq490, LUE, Sitting Xdeljitjx08, LUE, Sitting Blood Pressure Cuff SizeAdult Vbielh954 lb 3 oz BMI Qtwkukqpbr51.47 BSA Calculated2.06 O2 Syzguxwjos53 Physical Exam Constitutional General appearance: Alert and in no acute distress. Pulmonary Respiratory assessment: No respiratory distress, normal respiratory rhythm and effort. Cardiovascular Exam for edema: No peripheral edema. Musculoskeletal Examination of gait: Normal. Inspection of digits and nails: No clubbing or cyanosis of the fingernails. Inspection/palpation of joints, bones, and muscles: Abnormal. (mild swelling of dorsum of hands without active synovitis of joints). Appearance - no erythema, no ecchymosis, no amputations, no deformit y, no asymmetry, no contractures and normal spinal curvature. Palpation - no increased warmth, no masses, no click and no crepitus. Skin Skin inspection: Normal skin color and pigmentation, normal skin turgor and no visible rash. Psychiatric Orientation: Oriented to person, place, and time. Mood and affect: Normal. Diagnoses/Problems Rheumatoid arthritis, seropositive (714.0) (M05.9) Fibromyalgia (729.1) (M79.7) Long-term use of immunosuppressant medication (V58.69) (Z79.899) Orders Albumin, Serum; Source:Blood ([facility]); Status:Active; Requested for:19Feb2018; Perform:Lab Services - Lab To Draw (Blood Test); Due:20May2018;Ordered; For:Rheumatoid arthritis, seropositive; Ordered By:Bonita Saleem; ALT - Alanine Aminotransferase, Serum; Source:Blood (D); Status:Active; Requested for:19Feb2018; Perform:Lab Services - Lab To Draw (Blood Test); Due:20May2018;Ordered; For:Rheumatoid arthritis, seropositive; Ordered By:Bonita Saleem; AST; Source:Blood (BLD); Status:Active; Requested for:19Feb2018; Perform:Lab Services - Lab To Draw (Blood Test); Due:20May2018;Ordered; For:Rheumatoid arthritis, seropositive; Ordered By:Bonita Saleem; Blood Urea Nitrogen, Serum; Source:Blood (BLD); Status:Active; Requested for:19Feb2018; Perform:Lab Services - Lab To Draw (Blood Test); Due:20May2018;Ordered; For:Rheumatoid arthritis, seropositive; Ordered By:Bonita Saleem; C Reactive Protein, Serum; Source:Blood (BLD); Status:Active; Requested for:19Feb2018; Perform:Lab Services - Lab To Draw (Blood Test); Due:20May2018;Ordered; For:Rheumatoid arthritis, seropositive; Ordered By:Bonita Saleem; Cane; Status:Active; Requested for:19Feb2018; Perform:In Office; Due:01Mar2018;Ordered; For:Rheumatoid arthritis, seropositive; Ordered By:Bonita Saleem; Complete Blood Count + Differential; Source:Blood (D); Status:Active; Requested for:19Feb2018; Perform:Lab Services - Lab To Draw (Blood Test); Due:20May2018;Ordered; For:Rheumatoid arthritis, seropositive; Ordered By:Bonita Saleem; Creatinine, Serum; Source:Blood (D); Status:Active; Requested for:19Feb2018; Perform:Lab Services - Lab To Draw (Blood Test); Due:20May2018;Ordered; For:Rheumatoid arthritis, seropositive; Ordered By:Bonita Saleem; Sedimentation Rate, Erythrocyte; Source:Blood (D); Status:Active; Requested for:19Feb2018; Perform:Lab Services - Lab To Draw (Blood Test); Due:20May2018;Ordered; For:Rheumatoid arthritis, seropositive; Ordered By:Bonita Saleem; Xray Hip, unilateral w/ pelvis when performed, 2 or 3 view; Status:Hold For - Scheduling; Requested for:19Feb2018; Perform:[facility]; Due:20May2018;Ordered; For:Rheumatoid arthritis, seropositive; Ordered By:Bonita Saleem; Laterality : BILAT Radiologist to Determine Optimal Study : Y What are the patient's signs and symptoms? : B hip pain Provider Impressions RA and FMS,Labs were done to assess disease activity and drug toxicity. clinically disease doesn't appear active but pt with multiple symptoms. The patient's labs, radiology images and reports, and other tests since previous appointment were obtained, reviewed, and summarized as applicable from the physician portal, electronic medical records [facility] and/or outside sources. Pertinent positive and negative findings were considered in medical decision making. All questions were answered and the patient was counseled regarding the diagnosis, prognosis, risk and benefits of the various treatment options and the importance of compliance with therapy. Patient Discussion/Summary follow up 3 months Patient Education Homegoing instructions You are on medications that suppress your immune system. This may increase your risk of infections. Please call me or your primary care doctor if you are starting to feel sick. It is also important to b e up to date on your vaccines. As always, a healthy lifestyle helps chronic diseases. Eat a balanced diet, exercise at least 30 minutes a day/5 days a week and be up to date on screening health exams Go on ChoiceMap to view your test results. Please ask the office to help you set up your email in order to access this secure system. You can use ChoiceMap to also contact the office for noncritical issues, schedule/cancel appointments and ask for refills. Thank you .. End of Encounter Meds Albuterol Sulfate (2.5 MG/3ML) 0.083% Inhalation Nebulization Solution; Therapy: 19Oct2016 to Recorded Dulera 200-5 MCG/ACT Inhalation Aerosol; 2 (two) Puff two times daily; Therapy: 53Ajv6627 to Recorded Furosemide 20 MG Oral Tablet; TAKE 1 TABLET DAILY NEEDED; Therapy: 17Aug2017 to (Evaluate:01Jul2018) Requested for: 41Viv8187; Last Rx:68Gst3052 Ordered Gabapentin 300 MG Oral Capsule; TAKE 3 CAPSULES THREE TIMES DAILY; Therapy: 20Jan2016 to (Evaluate:78Zyj7909) Requested for: 87Zvw3449; Last Rx:34Rxt4420 Ordered HydrOXYzine HCl - 25 MG Oral Tablet; Therapy: 05Aug2016 to Recorded Levothyroxine Sodium 88 MCG Oral Tablet; TAKE 1 TABLET DAILY; Therapy: 25Xmn5054 to (Evaluate:12Jan2017) Recorded Nabumetone 750 MG Oral Tablet; TAKE ONE (1) TABLET BY MOUTH TWICE EVERY DAY NEEDED; Therapy: 54Lpr3761 to (Evaluate:31Jul2018) Requested for: 32Eag4599; Last Rx:01Feb2018 Ordered Omeprazole 40 MG Oral Capsule Delayed Release; TAKE 1 CAPSULE Daily In The Morning Before eating; Therapy: 19Dec2017 to (Last Rx:35Vfr8135) Requested for: 31Jan2018 Ordered PARoxetine HCl - 10 MG Oral Tablet; Take 1 tablet by mouth daily; Therapy: 24Nov2016 to Recorded PEG 3350/Electrolytes 240 GM Oral Solution Reconstituted; TAKE DIRECTED; Therapy: 19Dec2017 to (Last Rx:19Dec2017) Requested for: 19Dec2017 Ordered TraZODone HCl - 100 MG Oral Tablet; Therapy: 96Tkn4489 to Recorded Ventolin HFA 108 (90 Base) MCG/ACT Inhalation Aerosol Solution; INHALE 2 PUFFS EVERY 4 HOURS NEEDED; Therapy: 18Jan2016 to Recorded Wellbutrin XL 150 MG Oral Tablet Extended Release 24 Hour (BuPROPion HCl ER (XL)); TAKE 1 TABLET DAILY DIRECTED; Therapy: 47Ssy1227 to Recorded Xeljanz XR 11 MG Oral Tablet Extended Release 24 Hour; Take 1 tablet daily; Therapy: 20Nov2017 to (Evaluate:03Jan2019) Requested for: 08Jan2018; Last Rx:08Jan2018 Ordered Signatures Electronically signed by : Bonita Saleem MD; Feb 19 2018 5:36PM EST (Author) XR HIP BILAT 3-4 Observed: 02/19/2018 Status: F Source: [facility] VIEWS W PELVIS 2:17 PM [facility] REPOSITORY FINAL REPORT EXAM: XR HIP BILAT 3-4 VIEWS W PELVIS HISTORY: bilateral hip pain TECHNIQUE: AP pelvis and bilateral hips PRIORS: None. FINDINGS: There are no fractures or dislocations identified. No radiopaque foreign bodies or significant soft tissue findings are seen. No specific or significant nontraumatic abnormalities are identified. IMPRESSION: No significant osseous abnormalities. Technologist: PG Dictated By: FERMÍN SAWANT MD Signed By: FERMÍN SAWANT MD Signed Out: 02/19/18 14:17:28 ALBUMIN Collected: 02/19/2018 Status: F Source: [address] REPOSITORY TYPE CODE TESTS RESULT OUT OF REFERENCE UNITS RANGE LAB ALB(LOINC) 3.4 - 5.0 g/dL ALBUMIN 4.0 Performed By: #### ALB #### [place] [id number] ALT Collected: 02/19/2018 Status: F Source: [address] REPOSITORY TYPE CODE TESTS RESULT OUT OF RANGE REFERENCE UNITS LAB ALT(LOINC) 7 - 45 U/L ALT 11 Result Comment: Patients treated with Sulfasalazine may generate falsely decreased results for ALT. Performed By: #### ALT #### [place] [address] AST Collected: 02/19/2018 Status: F Source: [address] REPOSITORY TYPE CODE TESTS RESULT OUT OF RANGE REFERENCE UNITS LAB AST(LOINC) 9 - 39 U/L AST 15 Performed By: #### AST #### [place] [address] C-REACTIVE PROTEIN Collected: 02/19/2018 Status: F Source: [address] REPOSITORY TYPE CODE TESTS RESULT OUT OF REFERENCE UNITS RANGE LAB CRP(LOINC) mg/dL C-REACTIVE 0.39 PROTEIN Result Comment: REF VALUE < 1.00 Performed By: #### CRP #### [place] [id number] UREA NITROGEN Collected: 02/19/2018 Status: F Source: [address] REPOSITORY TYPE CODE TESTS RESULT OUT OF REFERENCE UNITS RANGE LAB UREA(LOINC) 6 - 23 mg/dL UREA NITROGEN 12 Performed By: #### UREA #### [place] [id number] CREATININE Collected: 02/19/2018 Status: F Source: [address] REPOSITORY TYPE CODE TESTS RESULT OUT OF REFERENCE UNITS RANGE LAB CREA(LOINC 0.50 - 1.05 mg/dL ) CREATININE 0.99 LAB GFRFN(LOIN >60 mL/min/1.73 C) m2 GFR-NON AM. >60 LAB GFRAA(LOIN >60 mL/min/1.73 C) m2 GFR- AM. >60 Result Comment: CALCULATIONS OF ESTIMATED GFR ARE PERFORMED USING THE MDRD STUDY EQUATION FOR THE IDMS-TRACEABLE CREATININE METHODS. CLIN CHEM 2007;53:766-72 Performed By: #### CRELUIS #### [facility] [address] [place] [address] CBC AND DIFFERENTIAL Collected: 02/19/2018 Status: F Source: [place] 1:35 PM [facility] REPOSITORY TYPE CODE TESTS RESULT OUT OF REFERENCE UNITS RANGE LAB WBCR(LOINC 4.4 - 11.3 x10E9/L ) WBC 6.8 LAB NRBC(LOINC 0.0-0.0 /100 WBC ) NUCLEATED RBC 0.0 LAB RBCCT(LOIN 4.00 - 5.20 x10E12/L C) Low RBC 3.80 LAB HGB(LOINC) 12.0 - 16.0 g/dL Low HGB 11.3 LAB HCT(LOINC) 36.0 - 46.0 % Low HCT 35.9 LAB MCV(LOINC) 80 - 100 fL MCV 94 LAB MCHC2(LOIN 32.0 - 36.0 g/dL C) Low MCHC 31.5 LAB PLTCT(LOIN 150 - 450 x10E9/L C) PLT 194 LAB RDWCV(LOIN 11.5 - 14.5 % C) RDW-CV 13.8 LAB NEUT(LOINC 40.0 - 80.0 % ) % NEUTROPHIL 53.6 LAB IG(LOINC) 0.0 - 0.9 % % AUTOMATED 0.1 IMMATURE GRAN Result Comment: Percent differential counts (%) should be interpreted in the context of the absolute cell counts (cells/L). LAB LYMPH(LOINC) 13.0 - 44.0 % % LYMPHOCYTE 38.8 LAB MONO(LOINC) 2.0 - 10.0 % % MONOCYTE 5.3 LAB EOS(LOINC) 0.0 - 6.0 % % EOSINOPHIL 1.9 LAB BASO(LOINC) 0.0 - 2.0 % % BASOPHIL 0.3 LAB #NEUT(LOINC) 1.20 - 7.70 x10E9/L NEUTROPHIL 3.63 LAB #LYMP(LOINC) 1.20 - 4.80 x10E9/L LYMPHOCYTE 2.63 LAB #MONO(LOINC) 0.10 - 1.00 x10E9/L MONOCYTE 0.36 LAB #EOS(LOINC) 0.00 - 0.70 x10E9/L EOSINOPHIL 0.13 LAB #BASO(LOINC) 0.00 - 0.10 x10E9/L BASOPHIL 0.02 Performed By: #### CBCDF #### [facility] [address] [place] [address] SEDIMENTATION RATE, Collected: 02/19/2018 Status: F Source: [place] ERYTHROCYTE 1:35 PM HOSPITALS REPOSITORY TYPE CODE TESTS RESULT OUT OF REFERENCE UNITS RANGE LAB ESRWS(LOIN 0 - 20 mm/h C) SEDIMENTATION High RATE, ERYTHROCYTE 45 Performed By: #### ESRWS #### [facility] [address] [place] [address] SURGERY VISIT REPORT Observed: 02/15/2018 Status: F Source: [place] 1:31 PM [facility] REPOSITORY [facility] 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 Is patient in pain?: No Allergies quetiapine fumarate [From Seroquel] Allergy (Verified 02/15/18 13:14) Anaphylaxis Medications Albuterol Inhaler [Ventolin Hfa (SP)] 1 - 2 puff INHALATION Q4H PRN PRN 06/26/16 [History Confirmed 02/15/18] Gabapentin [Neurontin] 900 mg PO TIDCM 06/26/16 [History Confirmed 02/15/18] Trazodone ER [Oleptro Er] 100 mg PO QHS PRN PRN 06/26/16 [History Confirmed 02/15/18] hydrOXYzine pamoate capsule [Vistaril] 50 mg PO QHS 06/26/16 [History Confirmed 02/15/18] buPROPion XL [Wellbutrin Xl] 150 mg PO BID 02/17/17 [History Confirmed 02/15/18] hydrOXYzine pamoate capsule [Vistaril] 25 mg PO DAILY 02/17/17 [History Confirmed 02/15/18] furosemide 20 mg tablet 20 mg PO QDAY 02/15/18 [History Confirmed 02/15/18] levothyroxine 88 mcg tablet 100 mcg PO DAILY tab 02/15/18 [History Confirmed 02/15/18] mometasone-formoterol HFA 100 mcg-5 mcg/actuation aerosol inhaler 2 puff INHALATION BID 02/15/18 [History Confirmed 02/15/18] nabumetone 750 mg tablet 750 mg PO BID 02/15/18 [History Confirmed 02/15/18] omeprazole 40 mg capsule,delayed release 40 mg PO QDAY 02/15/18 [History Confirmed 02/15/18] paroxetine 10 mg tablet 40 mg PO DAILY tab 02/15/18 [History Confirmed 02/15/18] PFSH Medical History Status asthmaticus (Acute) Rheumatoid arthritis (Chronic) Asthma (Acute) Depression (Acute) Fibromyalgia (Acute) Hypothyroid (Acute) Surgical History S/P (Acute) S/P tubal ligation (Acute) Family History Mother Diabetes Son Thyroid disorder Social History Smoking Status: Current every day smoker alcohol intake: never HPI HPI HPI: ALVARO VITAL, is a 42 F who presents to the office today for EGD and colonoscopy. Patient saw another GI doctor at [facility] supposed to have an EGD and colonoscopy however that was too far to travel for her. Patient states she gets bad abdominal cramps after eating which are pretty constant until she goes to the restroom which can be from 1-2 hours afterwards. States she has bowel movements every other day which started a regular and then become diarrhea she also has bleeding on the toilet paper almost every time she goes that she states is due to her hemorrhoids as she does have some burning sensation and has been using Tucks pads for those. Patient did get omeprazole from the GI doctor and states her reflux is better now she only has it 3-4 times a week before it was 10-15 times a week. States she still gets some nausea with spicy or greasy foods. She denies ever having a scope before in the past. Or family history of esophageal, gastric or colon cancer. ROS General General: Yes weight change (Gained) and fatigue Gastro Gastrointestinal: No abdominal pain, No nausea or vomiting, Yes diarrhea, No constipation, Yes blood in stool, Yes acid reflux, Yes hemorrhoids, No ulcers, No gallbladder problem, No black,tarry stools Exam Const General: cooperative, no acute distress, well developed Resp Effort AND Inspection: normal respiratory effort GI Inspection: non-distended, obesity Palpation: soft, nontender, no guarding Other: On rectal exam patient does have residual external tissue and with Valsalva does have internal hemorrhoids mostly seen at the right anterior position currently. She is 1 is 1 is causing 25 and this is easy she does not do this for further I think she should really use it is she was rescheduled for 1 but she is is also at [place] so Y see how she she has no this is much better Assessment AND Plan Problems 1. Gastroesophageal reflux disease K21.9 2. Abdominal cramping R10.9 3. Diarrhea R19.7 4. Hemorrhoids K64.9 Plan Also called in a prescription for Anusol 2.5% and lidocaine 5% ointment for her hemorrhoids she complains that they burn after having a bowel movement. I have discussed the above with the patient. I have offered the patient egd AND colonoscopy for evaluation. I have explained the risks/benefits of the procedure and described the procedure. I have discussed the risks with the patient, including but not limited to: infection, bleeding, perforation of the GI tract requiring emergency surgery, inability to complete the procedure, injury to any internal organs, complications of anesthesia, etc. - the patient understands and agrees to proceed. I have answered all the patient's questions to the patient's satisfaction and the patient has no further questions. The patient has been given instructions for the colon cleansing preparation-miralax split. Antonia Minor M.D. Pager: [phone] [facility] [address] [place] [address], [facility], [address] [place] [address] Office: [phone] Orders Orders: Medications Discontinued: hydrocodone-acetaminophen 5-325 mg causes 1 - 2 tabs PO Q6H PRN PRN Pain Pili C Siders drowsiness Discontinued Reason: Pt no olman aquiles taking Plan Detail Follow Up 1 (Schedule EGD and colonoscopy) Coding Level of Care Code Off vis,new,level 3 Diagnoses Gastroesophageal reflux disease K21.9 Abdominal cramping R10.9 Diarrhea R19.7 Hemorrhoids K64.9 02/15/18 1331 <Electronically signed by Antonia Minor MD> Date Antonia Minor MD Cosigner Signature: Date (if applicable) CC: Carlos Shultz MD GIARDIA/CRYPTOSPORIDIUM AG Collected: Status: F Source: [facility] 12/19/2017 1:00 PM HEALTHCARE REPOSITORY TYPE CODE TESTS RESULT OUT OF REFERENCE UNITS RANGE LAB CPTAG(TRES NEGATIVE NC) Cryptosporidium Antigen NEGATIVE LAB GIAR2(TRES NEGATIVE NC) Giardia Antigen NEGATIVE STOOL PATHOGEN PCR Collected: 12/19/2017 Status: F Source: [facility] HEALTHCARE PANEL 1:00 PM REPOSITORY TYPE CODE TESTS RESULT OUT OF REFERENCE UNITS RANGE LAB CAMP2(TRES NOTDETECTED NC) Campylobacter GP. NOT DETECTED LAB SALMO(TRES NOTDETECTED NC) Salmonella SP. NOT DETECTED LAB SHIGS(TRES NOTDETECTED NC) Shigella SP. NOT DETECTED LAB VIBGR(TRES NOTDETECTED NC) Vibrio Group NOT DETECTED LAB STOX1(TRES NOTDETECTED NC) Shiga Toxin 1 NOT DETECTED LAB STOX2(TRES NOTDETECTED NC) Shiga Toxin 2 NOT DETECTED LAB NOR2(LOIN NOTDETECTED C) Norovirus GI/GII NOT DETECTED LAB ROTAP(TRES NOTDETECTED NC) Rotavirus A NOT DETECTED Result Comment: The enteric PCR panel is a panel of sensitive and specific amplified nucleic acid tests indicated as an aid in the diagnosis of specific bacterial and viral agents of gastrointestinal illness, in conjunction with other clinical, laboratory, and epidemiological information. This test is not approved for monitoring these infections. Monitoring is available for Salmonella and Shigella infections-request test Stool PCR Follow-Up (STLPF). Monitoring tests are not available at this time for other enteric agents in this panel. LAB YERS(LOINC) NOTDETECTED Yersinina Enterocolitica NOT DETECTED CALPROTECTIN, FECAL Collected: 12/19/2017 Status: F Source: [facility] 1:00 PM HEALTHCARE REPOSITORY TYPE CODE TESTS RESULT OUT OF RANGE REFERENCE UNITS LAB CALPR(LOINC <=50 ug/g ) <16 Calprotectin , Fecal Result Comment: INTERPRETIVE INFORMATION: Calprotectin, Fecal 50 ug/g or less: Normal 51-120 ug/g: Borderline elevated, test should be re-evaluated in 4-6 weeks. 121 ug/g or greater: Abnormal Performed by [facility], [address] [place] [address] [id number] [email or web address], Abhijeet Gonzalez MD - Lab. Director Performed By: #### CALPR #### [facility] [address] [place] [id number] IRON PROFILE Collected: 12/19/2017 Status: F Source: [facility] 11:11 AM REPOSITORY TYPE CODE TESTS RESULT OUT OF REFERENCE UNITS RANGE LAB IRON(LOINC 35-150 ug/dL ) Iron 69 LAB TIBC(LOINC 250-565 ug/dL ) Iron Binding Capacity 303 LAB UIBC(LOINC 90-340 ug/dL ) Unbound Iron Binding 234 Capacity LAB [id number](LO 14-27 % INC) Percent Saturation 23 Performed By: #### [id number] #### [facility] [address] [place] [address] FERRITIN Collected: 12/19/2017 Status: F Source: [facility] 11:11 AM REPOSITORY TYPE CODE TESTS RESULT OUT OF REFERENCE UNITS RANGE LAB ANA(LOINC) 8-150 ng/mL Ferritin 23 Performed By: #### [id number] #### [facility] [address] [place] [address] TISSUE TRANSGLUTAM IGA Collected: 12/19/2017 Status: F Source: [facility] 11:11 AM HEALTHCARE REPOSITORY TYPE CODE TESTS RESULT OUT OF REFERENCE UNITS RANGE LAB TTGA(LOINC 0-14 ) Tissue Transglutam IgA <1 Result Comment: Celiac disease is unlikely. False negative Tissue Transglutaminase Antibody, IgA results can occur in approximately 10% of patients with celiac disease, patients already adhering to a gluten-free diet, or patients with IgA deficiency. QUANTIFERON TB GOLD Collected: 11/20/2017 Status: F Source: [place] 4:12 PM [facility] REPOSITORY TYPE CODE TESTS RESULT OUT OF REFERENCE UNITS RANGE LAB QUAFE(LOIN Negative C) QUANTIFERON TB GOLD NEGATIVE Result Comment: Negative test result. M. tuberculosis complex infection unlikely. LAB QUNIL(LOINC) IU/mL NIL 0.06 LAB QUMIN(LOINC) IU/mL MITOGEN NIL >10.00 LAB QUTBN(LOINC) IU/mL TB ANTIGEN NIL 0.02 Result Comment: The Nil tube value is used to determine if the patient has a preexisting immune response which could cause a false-positive reading on the test. In order for a test to be valid, the Nil tube must have a value of <=8.0 IU/mL. The Mitogen control tube is used to assure the patient has a healthy immune status and also serves as a control for correct blood handling and incubation. It is used to detect false-negative readings. The mitogen tube must have a gamma interferon value >= 0.5 IU/mL higher than the value of the Nil tube. The TB Antigen tube is coated with the M tuberculosis specific antigens. For a test to be considered positive the TB antigen tube value minus the Nil tube value must be >=0.35 IU/mL. Data on the performance of the test in children younger than 5 years of age are limited, and the CDC advises that caution is warranted when using the assay in children aged <5 years (MMWR 2010; 59 (RR-05):1-25). For additional information, please refer to: http://education.Greats.opvizor/faq/QFT (This link is being provided for informational/ educational purposes only). Performed By: #### QUAF1 #### [facility] [address] [place] [address] ALT Collected: 11/20/2017 Status: F Source: [place] 4:11 [facility] REPOSITORY TYPE CODE TESTS RESULT OUT OF RANGE REFERENCE UNITS LAB ALT(LOINC) 7 - 45 U/L ALT 32 Result Comment: Patients treated with Sulfasalazine may generate falsely decreased results for ALT. Performed By: #### ALT #### [facility] [address] [place] [id number] ALBUMIN Collected: 11/20/2017 Status: F Source: [place] [address]:[address] [place] [address] REPOSITORY TYPE CODE TESTS RESULT OUT OF REFERENCE UNITS RANGE LAB ALB(LOINC) 3.4 - 5.0 g/dL ALBUMIN 3.8 Performed By: #### ALB #### [facility] [address] [facility] [place] [id number] AST Collected: 11/20/2017 Status: F Source: [place] [address]:[address] [place] [address] REPOSITORY TYPE CODE TESTS RESULT OUT OF RANGE REFERENCE UNITS LAB AST(LOINC) 9 - 39 U/L AST 27 Performed By: #### AST #### [facility] [address] [place] [address] C-REACTIVE PROTEIN Collected: 11/20/2017 Status: F Source: [address] REPOSITORY TYPE CODE TESTS RESULT OUT OF RANGE REFERENCE UNITS LAB CRP(LOINC) mg/dL Abnormal C-REACTIVE 2.08 PROTEIN Result Comment: REF VALUE < 1.00 Performed By: #### CRP #### [facility] [address] [place] [id number] UREA NITROGEN Collected: 11/20/2017 Status: F Source: [place] [address] [place] [address] REPOSITORY TYPE CODE TESTS RESULT OUT OF REFERENCE UNITS RANGE LAB UREA(LOINC) 6 - 23 mg/dL UREA NITROGEN 7 Performed By: #### UREA #### [address] [facility] [place] [id number] CREATININE Collected: 11/20/2017 Status: F Source: [place] [address]:[address] [place] [address] REPOSITORY TYPE CODE TESTS RESULT OUT OF REFERENCE UNITS RANGE LAB CREA(LOINC 0.50 - 1.05 mg/dL ) CREATININE 0.88 LAB GFRFN(LOIN >60 mL/min/1.73 C) m2 GFR-NON AM. >60 LAB GFRAA(LOIN >60 mL/min/1.73 C) m2 GFR- AM. >60 Result Comment: CALCULATIONS OF ESTIMATED GFR ARE PERFORMED USING THE MDRD STUDY EQUATION FOR THE IDMS-TRACEABLE CREATININE METHODS. CLIN CHEM 2007;53:766-72 Performed By: #### CREAT #### [facility] [address] [place] [address] CBC AND DIFFERENTIAL Collected: 11/20/2017 Status: F Source: [place] 4:11 PM [facility] REPOSITORY TYPE CODE TESTS RESULT OUT OF REFERENCE UNITS RANGE LAB WBCR(LOINC 4.4 - 11.3 x10E9/L ) WBC 5.8 LAB NRBC(LOINC 0.0-0.0 /100 WBC ) NUCLEATED RBC 0.0 LAB RBCCT(LOIN 4.00 - 5.20 x10E12/L C) Low RBC 3.34 LAB HGB(LOINC) 12.0 - 16.0 g/dL Low HGB 10.1 LAB HCT(LOINC) 36.0 - 46.0 % Low HCT 31.8 LAB MCV(LOINC) 80 - 100 fL MCV 95 LAB MCHC2(LOIN 32.0 - 36.0 g/dL C) Low MCHC 31.8 LAB PLTCT(LOIN 150 - 450 x10E9/L C) PLT 182 LAB RDWCV(LOIN 11.5 - 14.5 % C) RDW-CV High 14.7 LAB NEUT(LOINC 40.0 - 80.0 % ) % NEUTROPHIL 51.8 LAB IG(LOINC) 0.0 - 0.9 % % AUTOMATED 0.2 IMMATURE GRAN Result Comment: Percent differential counts (%) should be interpreted in the context of the absolute cell counts (cells/L). LAB LYMPH(LOINC) 13.0 - 44.0 % % LYMPHOCYTE 38.7 LAB MONO(LOINC) 2.0 - 10.0 % % MONOCYTE 5.5 LAB EOS(LOINC) 0.0 - 6.0 % % EOSINOPHIL 3.3 LAB BASO(LOINC) 0.0 - 2.0 % % BASOPHIL 0.5 LAB #NEUT(LOINC) 1.20 - 7.70 x10E9/L NEUTROPHIL 3.02 LAB #LYMP(LOINC) 1.20 - 4.80 x10E9/L LYMPHOCYTE 2.25 LAB #MONO(LOINC) 0.10 - 1.00 x10E9/L MONOCYTE 0.32 LAB #EOS(LOINC) 0.00 - 0.70 x10E9/L EOSINOPHIL 0.19 LAB #BASO(LOINC) 0.00 - 0.10 x10E9/L BASOPHIL 0.03 Performed By: #### CBCDF #### [facility] [address] [place] [address] SEDIMENTATION RATE, Collected: 11/20/2017 Status: F Source: [facility]11 [facility] REPOSITORY TYPE CODE TESTS RESULT OUT OF REFERENCE UNITS RANGE LAB ESRWS(LOIN 0 - 20 mm/h C) SEDIMENTATION High RATE, ERYTHROCYTE 63 Result Comment: Note new reference range (males age 17-50) and new methodology as of 09/28/2017. Performed By: #### ESRWS #### [facility] [address] [place] [address] THYROID STIM HORMONE Collected: 10/12/2017 Status: F Source: JEFFREY (TSH) 11:05 AM [facility] REPOSITORY TYPE CODE TESTS RESULT OUT OF RANGE REFERENCE UNITS LAB L501.9520 0.358-3.74 uIU/mL High TSH 6.65 Performed By: #### L501.9520 #### [facility] [address] [place], [address] ALLERGIES ALLERGIES DATE TYPE / CODE NAME / CODE REACTION SEVERITY SOURCE 07/30/2018 Drug quetiapine Anaphylaxis Unknown Jeffrey Allergy/416 fumarate/[id number] [facility] 712285([facility](RXNORM) [facility] ED [facility]) Repository 07/30/2018 Drug haloperidol/F006 makes me angry Unknown Jeffrey Allergy/416 994077(RXNORM) [facility] 130243([facility] ED CT) Repository 07/30/2018 Drug fentanyl/[id number] Unknown Unknown Jeffrey Allergy/416 571(RXNORM) [facility] 055245([facility] ED CT) Repository Drug/053639 No Known [place] [facility] Rep[facility] ENCOUNTERS ENCOUNTERS ADMIT/DISCHARGE ACCOUNT NUMBER ADMITTING ENCOUNTER LOCATION SOURCE CLASS 08/15/2018 [id number] Ambulatory [facility] ding:MTRAD Repository 07/30/2018 [id number] Ambulatory BMSBuilding: [place] BMS.[facility] Repository 07/30/2018/08/01/20 [id number] Jus, Ambulatory [place] Jeffrey 18 [facility] ding:[id number] Repository : PZ735Vof: 1 07/30/2018 [id number] Jus, Ambulatory BMSBuilding: [place] Pepito BMS.[facility] Repository 07/30/2018 [id number] [facility], Ambulatory BMSBuilding: [place] BMS.[facility] Repository 07/30/2018 [id number] Ambulatory BMSBuilding: [place] [facility] Repository 07/27/2018/07/27/20 [id number] Emergency [address] ding:ED Repository 07/11/2018/07/11/20 [id number] Ambulatory MMCBuilding: [address] Repository 06/26/2018/06/26/[id number] ding:[facility] B Repository 06/14/2018/06/14/[id number] ding:[facility] Repository 06/14/2018/06/14/[id number] ding:[facility] crestRoom: Repository CD:[id number] 06/14/2018 [id number] Ambulatory [address] [place] [address] Repository 05/08/2018 [id number] Ambulatory [facility] Healthcare Repository 05/02/2018 [id number] Ambulatory [facility] ding:PSN Repository 03/20/2018/03/20/[id number] ding:[facility] B Repository 02/28/2018/02/29/20 [id number] Ambulatory [address] ding:ENRoom: Repository AC16 02/28/2018 [id number] Ambulatory BMSBuilding: [place] BMS.CF.[facility] Repository 02/19/2018/02/20/20 [id number] Ambulatory [id number] [place] [address] g:BRX [facility] Repository 02/15/2018/02/16/20 [id number] Ambulatory BMSBuilding: Jeffrey 18 BMS.[facility] Repository 01/15/2018 [id number] Ambulatory BMSBuilding: [place] BMS.[facility] Repository 01/08/2018 [id number] Ambulatory BMSBuilding: [place] BMS.[facility] Repository 01/01/2018 [id number] Ambulatory BMSBuilding: [place] BMS.[facility] Repository 12/26/2017 [id number] Ambulatory BMSBuilding: [place] BMS.[facility] Repository 12/19/2017 [id number] Ambulatory 7 [facility] Healthcare Repository 12/19/2017 [id number] [facility] Healthcare Repository 12/12/2017 [id number] Ambulatory 7 [facility] Healthcare Repository 10/12/2017 [id number] Ambulatory [facility] ding:MFPLAB Repository PAYERS PAYERS ENCOUNTER GUARANTOR PAYER SUBSCRIBER SOURCE 08/15/2018 ALVARO SANDERS6 Primary Pallavi Murphy [address] Insurance:MEDICAL TannerDOB: [address] [id number] Hospital [address]Wsi: (330) Number: Repository [phone] ) [id number] Date:[id number] [address] [place] [address]FO: 08/15/2018 Secondary ALVARO Murphy Insurance:CARESOURCEP TANNERDOB: [facility] Number: [id number] Hospital [id number] Repository Date:2018-08-15P [address]ATTN: [place] [address]XS: 08/15/2018 Tertiary CALI Murphy Insurance:SELF PAY [facility] Number: Effective Repository Date:2018-08-15 07/30/2018 ALVARO SANDERS6 Primary Pallavi Murphy [address] Insurance:MEDICAL TannerDOB: [address] [id number] Hospital [address]Ygu: (330) Number: Repository [phone] () [id number] Date:[id number] [address] [place] [address]AL: 07/30/2018 Secondary ALVARO R [place] Insurance:CARESOURCEP TANNERDOB: [facility] Number: [id number] Hospital [id number] Repository Date:2018-07-30 [address]ATTN: [place] [address]IV: 07/30/2018 Tertiary NOT GIVENUNK [place] Insurance:SELF PAY [facility] Number: Effective Repository Date:2018-07-30 07/30/2018 ALVARO SANDERS6 Primary Pallavi L [place] [address] Insurance:MEDICAL TannerDOB: [address] [id number] Hospital [address]Bdn: (330) Number: Repository [phone] () [id number] Date:6794-92-05UC [facility] [address] [place], [place] [address]WP: 07/30/2018 Secondary ALVARO R [place] Insurance:CARESOURCEP TANNERDOB: [facility] Number: [id number] Hospital [id number] Repository Date:2018-07-30 [address]ATTN: [place] [address]AP: 07/30/2018 Tertiary NOT GIVENUNK Jeffrey Insurance:SELF PAY [facility] Number: Effective Repository Date:2018-07-30 07/30/2018 ALVARO SANDERS6 Primary Pallavi L [place] [address] Insurance:MEDICAL TannerDOB: [address] [id number] Hospital [address]Dak: (330) Number: Repository [phone] () [id number] Date:0129-66-72RL [place] [address]WP: 07/30/2018 Secondary ALVARO R [place] Insurance:CARESOURCEP TANNERDOB: [facility] Number: [id number] Hospital [id number] Repository Date:2018-07-30 [address]ATTN: [place] [address]GE: 07/30/2018 Tertiary NOT GIVENUNK Jeffrey Insurance:SELF PAY [facility] Number: Effective Repository Date:2018-07-30 07/30/2018 ALVARO Annika [id number] Primary Pallavi L [place] [address] Insurance:MEDICAL TannerDOB: [address] [id number] Hospital [address]Mtv: (330) Number: Repository [phone] () [id number] Date:5052-39-61CT [facility] [address] [place] [address]JG: 07/30/2018 Secondary ALVARO R [place] Insurance:CARESOURCEP TANNERDOB: [facility] Number: [id number] Hospital [id number] Repository Date:2018-07-30 [address]ATTN: [place] [address]DF: 07/30/2018 Tertiary NOT GIVENUNK [place] Insurance:SELF PAY [facility] Number: Effective Repository Date:2018-07-30 07/30/2018 ALVARO VITAL416 Primary Pallavi L [place] [address] Insurance:MEDICAL TannerDOB: [address] [id number] Hospital [address]Gyx: (330) Number: Repository [phone] () [id number] Date:2727-07-30SN [address] [place] [address]HM: 07/30/2018 Secondary ALVARO R [place] Insurance:CARESOURCEP TANNERDOB: [facility] Number: [id number] Hospital [id number] Repository Date:2018-07-30 [address]ATTN: [place] [address]LI: 07/30/2018 Tertiary NOT GIVENUNK Jeffrey Insurance:SELF PAY [facility] Number: Effective Repository Date:2018-07-30 07/27/2018 ALVARO Roblero [id number] Primary Pallavi L [place] [address] [place] Insurance:MEDICAL TannerDOB: [facility] [id number] Hospital [address]Rha: (807) Number: Repository [phone] () [id number] Date:6420-76-96OY [address] [place] [address]XM: 07/27/2018 Secondary ALVARO Murphy Insurance:CARESOURCEP TANNERDOB: [facility] Number: [id number] Hospital [id number] Repository Date:2018-07-27 [address]ATTN: [place] [address]ZQ: 07/27/2018 Tertiary NOT GIVENUNK Jeffrey Insurance:SELF PAY [facility] Number: Effective Repository Date:2018-07-27 06/26/2018 ALVARO TANNERDOB: Primary PALLAVI TANNERDOB: Sabianist E Insurance:Medical [id number] [facility] [place] Effective [place], [place] Repository [address]Gks: Date:2018-06-14 02477Htq: [phone] [id number] [phone] () Name:Medical [facility] ()Tel: 000) [address], [place] 000[address] () [address]VF: 06/26/2018 Secondary ALVARO TANNERDOB: Sabianist Insurance:CARESOURCE [id number] [facility] MCAIDPolic Number: [facility] [employer] [address] System Effective [place], [place] Repository Date:2018-06-14 [address]Wxk: [id number] Name:CD:[id number] (HP)Tel: (000) [address] [place] [address] (WP) [phone]: 06/14/2018 ALVARO TANNERDOB: Primary PALLAVI TANNERDOB: Sabianist E Insurance:Medical [id number] [facility] MutualPolicy Number: C[facility]AL System [address] [place] [address] Effective [place], [place] Repository [address]Gjq: Date:2018-06-14Tel: [phone] [phone] (HP) Name:Medical MutualPO (HP)Tel: (000) [address] [place] [address] (WP) [address]KS: 06/14/2018 Secondary ALVARO TANNERDOB: Sabianist Insurance:[facility] [id number] [facility] MCAIDPolicy Number: [facility] System Effective 75 [place] [address] Repository Date:2018-06-14 [address]Inl: [id number] Name:CD:[id number] (HP)Tel: (000) [address] [place] [address] 000-0000 (WP) [phone]: 06/14/2018 ALVARO TANNERDOB: Primary PALLAVI TANNERDOB: Sabianist E Insurance:Medical [id number] [facility] MutualPolicy Number: [facility] System [address] [place] [address] Effective [place], [place] Repository [address]Crg: Date:2018-05-29Tel: [phone] (HP) Name:Medical [place] (HP) (WP) 06/14/2018 Secondary ALVARO TANNERDOB: Sabianist Insurance:CARESOURCE [id number] [facility] Number: Khushboo [facility] System Effective [place], [place] Repository Date:2018-05-29 [address]Omc: [id number] Name:CD:[id number] ()Tel: (000) [address] [place] [address] 000-0000 (WP) [phone]: 06/14/2018 ALVARO TANNERDOB: Primary ALVARO TANNSHARONADOB: [place] Insurance:Medical [id number] [facility] Repository [place], [place] Number: [place] [id number]: [id number]: Date:Plan Name:[facility] () () 06/14/2018 Secondary ALVARO TANNSHARONADOB: [place] Insurance:[facility] [id number] [facility] Number: Khushboo [facility] Repository [id number] [place], [place] Date:Plan [id number]: Name:Health [address] [place] [address] () [id number]: 05/08/2018 ALVARO R Primary ALVARO R [facility] TANNERDOB: Insurance:MEDICAID^L^ TANNERDOB: Repository 246^^^[id number]^XXPolicy [id number] [facility] Number: [facility] STREET[address]T [id number]RE[address] [place], [place] Date:Plan [place], [place] [address]Qno: (073) Name:Health [address] [address]Yhw: (HP) [place], [place] [phone] () [address]LW: 05/08/2018 Secondary ALVARO R [facility] Healthcare Insurance:CARESOURCE^ TANNERDOB: Repository L^230^^^[id number]^XXPoli [id number] cy Number: [facility] [id number] STREETAPT Date:Plan [place], [place] Name:[facility] [address] [place] [address] [id number]: 05/08/2018 Tertiary PALLAVI TANNERDOB: [facility] Healthcare Insurance:MEDICAL [id number] Repository [place]^L^247^^^[id number] XPolicy Number: [id number] Date:Plan Name:[address] [id number]: 05/02/2018 ALVARO Roblero [id number] Primary Pallavi L [place] E [facility] Insurance:MEDICAL TannerDOB: [address] [id number] [facility] [address]Stc: (172) Number: Repository [phone] (YN) [id number] Date:6145-88-70ZV[address] [address]BG: 05/02/2018 Secondary LAVARO R Jeffrey Insurance:CARESOURCEP TANNERDOB: [facility] Number: [id number] Hospital [id number] Repository Date:2017-10-18 [facility] 8730ATTN: [place] [address]EJ: 05/02/2018 Tertiary NOT GIVENUNK [place] Insurance:SELF PAY [facility] Number: Effective Repository Date:2017-12-13 03/20/2018 ALVARO TANNERDOB: Primary PALLAVI TANNERDOB: Sabianist E Insurance:Medical [id number] [place] [address] Number: [facility] System [address] [place] [address] Effective [place], [place] Repository [address]Cco: Date:2018-03-08Tel: [phone] [phone] () Name:Medical [place] () (WP) 03/20/2018 Secondary ALVARO TANNERDOB: Sabianist Insurance:CARESOURCE [id number] [facility] Number: Khushboo [address] System Effective [address] [place] [address] Repository Date:2018-03-19 [address]Wit: [id number] Name::[id number] ()Tel: (000) [address], [place] 000-[address] (WP) [phone]: 02/28/2018 ALVARO SANDERS6 Primary Pallavi L Jeffrey E [address] Insurance:MEDICAL TannerDOB: [address] [id number] Hospital [address]Oqx: 330) Number: Repository [phone] () [id number] Date:7197-46-21VO [address] [place] [address]MW: 02/28/2018 Secondary ALVARO Espinosaoster Insurance:CARESOURCEP TANNERDOB: [facility] Number: [id number] Hospital [id number] Repository Date:2018-02-15 [address]: [place] [address]GR: 02/28/2018 Tertiary NOT GIVENUNK [place] Insurance:SELF PAY [facility] Number: Effective Repository Date:2018-02-15 02/28/2018 ALVARO SANDERS6 Primary Pallavi L [place] E [address] Insurance:MEDICAL TannerDOB: [address] [id number] Hospital [address]Nut: (330) Number: Repository [phone] () [id number] Date:3787-61-42RP [address] [place] [address]FI: 02/28/2018 Secondary ALVARO Murphy Insurance:CARESOURCEP TANNERDOB: [facility] Number: [id number] Hospital [id number] Repository Date:2018-02-15 [address]: [place] [address]OC: 02/28/2018 Tertiary NOT GIVENUNK [place] Insurance:SELF PAY [facility] Number: Effective Repository Date:2018-02-28 02/15/2018 ALVARO VITAL416 Primary Pallavi L [place] [address] Insurance:MEDICAL TannerDOB: [address] [id number] Hospital [address]Obf: (330) Number: Repository [phone] () [id number] Date:1757-70-44PY [address] [place] [address]XW: 02/15/2018 Secondary ALVARO Annika [place] Insurance:CARESOURCEP TANNERDOB: [facility] Number: [id number] Hospital [id number] Repository Date:2018-01-30 [address]ATTN: [place] [address]CB: 02/15/2018 Tertiary NOT GIVENUNK [place] Insurance:SELF PAY [facility] Number: Effective Repository Date:2018-02-15 01/15/2018 ALVARO VITAL416 Primary Pallavi L [place] E [address] Insurance:MEDICAL TannerDOB: [address] [id number] Hospital [address]Qci: (330) Number: Repository [phone] () [id number] Date:3234-48-09DR [address] [place] [address]WI: 01/15/2018 Secondary ALVARO Annika [place] Insurance:CARESOURCEP TANNERDOB: [facility] Number: [id number] Hospital [id number] Repository Date:2018-01-08P [address]N: [place] [address]LI: 01/15/2018 Tertiary NOT GIVENUNK [place] Insurance:SELF PAY [facility] Number: Effective Repository Date:2018-01-08 01/08/2018 ALVARO VITAL416 Primary Pallavi L Jeffrey [address] Insurance:MEDICAL TannerDOB: [address] [id number] Hospital [address]Saf: (330) Number: Repository [phone] () [id number] Date:1255-49-15RT [address] [address]HU: 01/08/2018 Secondary ALVARO R Jeffrey Insurance:CARESOURCEP TANNERDOB: [facility] Number: [id number] Hospital [id number] Repository Date:2018-01-01 [address]ATTN: [place] [address]UQ: 01/08/2018 Tertiary NOT GIVENUNK [place] Insurance:SELF PAY [facility] Number: Effective Repository Date:2018-01-01 01/01/2018 ALVARO VITAL416 Primary Pallavi L [place] [address] Insurance:MEDICAL TannerDOB: [address] [id number] Hospital [address]Ivd: (330) Number: Repository [phone] () [id number] Date:4774-25-15OG[address] [address]KZ: 01/01/2018 Secondary ALVARO R [place] Insurance:CARESOURCEP TANNERDOB: [facility] Number: [id number] Hospital [id number] Repository Date:2017-12-26P [address]N: [place] [address]GV: 01/01/2018 Tertiary NOT GIVENUNK [place] Insurance:SELF PAY [facility] Number: Effective Repository Date:2017-12-26 12/26/2017 ALVARO VITAL416 Primary Pallavi Chaudhary [place] E TRE [facility] Insurance:MEDICAL TannerDOB: [address] [id number] Hospital [address]Wjp: (330) Number: Repository [phone] () [id number] Date:7909-03-93YL [address] [address]RF: 12/26/2017 Secondary ALVARO Murphy Insurance:CARESOURCEP TANNERDOB: [facility] Number: [id number] [facility] [id number] Repository Date:2017-12-21 [address]N: [place] [address]WA: 12/26/2017 Tertiary NOT GIVENUNK [place] Insurance:SELF PAY [facility] Number: Effective Repository Date:2017-12-26 12/19/2017 ALVARO Roblero Primary PALLAVI TANNERDOB: [facility] Healthcare TANNERDOB: Insurance:MEDICAL [id number] Repository [facility] [facility]^L^247^^^[id number]^X STREETAPT XPolicy Number: [address] [place] [address] [id number] 225[address]Err: 330) Date:Plan [phone] () Name:[address] [id number]: 12/19/2017 Secondary ALVARO Roblero [facility] Healthcare Insurance:CARESOURCE^ TANNERDOB: Repository L^230^^^[id number]^XXPoli [id number] cy Number: [facility] [id number] STREETAPT Date:Plan [place] Name:[facility] [address] [place] [id number]: 12/19/2017 ALVARO Roblero Primary PALLAVI TANNERDOB: [facility] Healthcare TANNERDOB: Insurance:MEDICAL [id number] Repository [facility]^L^247^^^[id number]^X STREETAPT XPolicy Number: [address] [place] [address] [id number] [address]Joc: (330) Date:Plan [address]339 () Name:[address] [id number]: 12/19/2017 Secondary ALVARO R [facility] Healthcare Insurance:CARESOURCE^ TANNERDOB: Repository L^230^^^[id number]^XXPoli [id number] cy Number: [place]IS [place] [id number] STREETAPT Date:Plan [place] Name:[facility] [address] [place] [id number]: 12/12/2017 ALVARO TANNERDOB: Primary ALVARO TANNERDOB: [facility] Healthcare Insurance:CARESOURCE^ [id number] Repository [place] L^230^^^[id number]^XXPoli [address] [place] STREETAPT cy Number: STREETAPT [address] [place] [address] [id number] [place] [address]Btk: (330) Date:Plan [address]Ynp: () Name:[place] [phone] () [address] [place] [address] [id number]: 10/12/2017 ALVARO R [id number] Primary ALVARO R [place] E T[address] [place] Insurance:MEDICAL TANNERDOB: [address] [facility] [id number] Hospital [address]Alz: (330) Number: Repository [phone] () [id number] Date:7668-72-56DA [address] [place] [address]BQ: 10/12/2017 Secondary ALVARO Annika Murphy Insurance:CARESOURCEP TANNERDOB: [facility] Number: [id number] Hospital [id number] Repository Date:2017-10-12 [address]: [place] [address]PT: 10/12/2017 Tertiary NOT GIVENUNK [place] Insurance:SELF PAY [facility] Number: Effective Repository Date:2017-10-12
== END ==
PROVIDERS: Family Provider Family Medicine; PCP Family Medicine; Referring Provider Family Medicine; Visit Provider Family Medicine
DX: M25.561 Pain in right knee (principal); M25.562 Pain in left knee
CPT/HCPCS: 73562

== ENCOUNTER → 2018-09-28 09:10 | Outpatient (CLI) | payer MEDICAID, SELFPAY ==
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
== END ==
PROVIDERS: Family Provider Family Medicine; PCP Family Medicine
DX: M25.562 Pain in left knee (principal)
CPT/HCPCS: 73721

== ENCOUNTER 2019-05-24 16:11 | Emergency (ER) | payer MEDICAID, SELFPAY ==
[2019-05-24 16:13] VITALS: BP 161/85; PULSE 103; RESP 20; TEMP 36.6; O2SAT 95; BMI 39.0
--- NOTE | 2019-05-24 16:29 | EKG12_ITS ---
Test Reason : SOB Blood Pressure : / mmHG Vent. Rate : 089 BPM Atrial Rate : 089 BPM P-R Int : 146 ms QRS Dur : 086 ms QT Int : 360 ms P-R-T Axes : 018 063 -68 degrees QTc Int : 438 ms Normal sinus rhythm ST & T wave abnormality, consider inferior ischemia ST & T wave abnormality, consider anterolateral ischemia Abnormal ECG Confirmed by DIANA PASCAL ([id number]), senior technical editor JESUS RAMIRES ([id number]) on 05/27/2019 2:22:40 PM Referred By: LACEY Confirmed By:DIANA PASCAL
--- NOTE | 2019-05-24 16:30 | ED.DCSUM_ITS ---
History of Present Illness Chief Complaint: Shortness of Breath Informant: Patient, - Onset: Yesterday Context: Gradual Onset Timing: Continuous Current Severity: Moderate Maximum Severity: Severe Narrative: The patient presents to the emergency department shortness of breath. Patient has a history of asthma and COPD. She is not on oxygen at home. She does smoke. She states yesterday, she had some nasal drainage and cough. It was not productive sputum. She did not have fevers or chills. She states today, her symptoms are worse and she felt like she cannot breathe. She had worsening coughing. She is been using her nebulizers with little improvement. She called squad because of her dyspnea. On squad arrival, she was mildly tachycardic but not hypoxic. She was given a nebulized breathing treatment and brought in for further evaluation. The patient states last time she is been on oral steroids or antibiotics was over a year ago. She denies any chest pain. She denies hemoptysis. Prior similar symptoms: No Recent Illness/Hospitalization: No Past Medical History - Allergies and Home Meds Allergies/Adverse Reactions: Allergies fentanyl Allergy (Verified 05/24/19 16:16) Unknown haloperidol [From Haldol] Allergy (Verified 05/24/19 16:16) makes me angry quetiapine fumarate [From Seroquel] Allergy (Verified 05/24/19 16:16) Anaphylaxis Primary Care Physician: Carlos Shultz MD [Primary Care Provider] - Prior records reviewed: Yes Past Medical History: - - COPD, asthma Surgical History: - - tubal Smoking Status: Current every day smoker - Family History Maternal Family History: Family History (Last Updated 02/15/18 @ 13:13 by Pili Webb) Mother Diabetes Son Thyroid disorder Family History: Reports: Diabetes, Heart Disease Review of Systems General: Reports: Chills Eyes: Denies: Visual changes - bilaterally, Diplopia ENT: Denies: Rhinorrhea, Sore throat Cardiovascular: Denies: Chest pain, Palpitations Respiratory: Reports: Dyspnea, Cough Gastrointestinal: Denies: Abdominal pain, Nausea, Vomiting, Diarrhea, Melena, Hematochezia Genitourinary: Denies: Dysuria, Hematuria, Frequency Musculoskeletal: Denies: Back pain, Extremity Pain Skin: Denies: Rash, Wounds Neurological: Denies: Headache, Weakness, Numbness Physical Exam Vital Signs/Narrative: Vital Signs Temp Pulse Resp BP Pulse Ox 05/24/19 16:13 98 F 103 H 20 H 161/85 H 95 Inital Vital Signs reviewed: Yes General: Well nourished, Well developed, No Acute Distress Head: Normocephalic, Atraumatic Eyes: Perrl, EOMI ENT: Moist mucous membranes, No rhinorrhea Neck: Supple, Nontender Cardiovascular: Regular rate, Regular rhythm, No murmurs Respiratory: No distress, Chest nontender, Wheezing, Decreased Air Movement Abdomen: Soft, Nontender, Nondistended, Normal bowel sounds Back: Nontender, Normal Inspection Extremities: Nontender, No edema Skin: Normal color, No rash Neurological: Alert, Oriented x3, Cranial nerves II-XII grossly intact, Normal Strength, Normal Sensation Psychological: Normal affect, Normal Mood Diagnostic/Tx/Re-eval Chest X-Ray - ED: 1 View, Normal, Heart, Lungs, Mediastinum Clinical Impression(s) from Imaging Studies Chest X-Ray 05/24/19 17:35 IMPRESSION: No acute cardiopulmonary disease. Electronically Signed: Valentin Mitchell MD at 17:50 EDT , Service support , Abnormal Lab Results 05/24/19 05/24/19 17:05 17:05 WBC 8.7 RBC 4.05 L Hgb 12.2 Hct 37.4 MCV 92.3 MCH 30.1 MCHC 32.6 RDW Std Deviation 49.1 H RDW Coeff of Lola 14.6 Plt Count 216 MPV 9.6 Immature Gran % (Auto) 0.300 Neut % (Auto) 77.8 H Lymph % (Auto) 16.3 L [place] % (Auto) 4.8 Eos % (Auto) 0.6 Baso % (Auto) 0.2 Absolute Neuts (auto) 6.8 Absolute Lymphs (auto) 1.42 Nucleated RBC % 0 Sodium 140 Potassium 3.3 L Chloride 109 H Carbon Dioxide 27.0 Anion Gap 4 L BUN 7 Creatinine 0.98 Estim Creat Clear Calc 66.61 Est GFR (MDRD) Af Amer 79 Est GFR (MDRD) Non-Af 66 BUN/Creatinine Ratio 7.1 L Glucose 103 Calcium 8.8 - Rhythm Strip Rhythm Strip: Sinus Rhythm Rate: 90 Ectopy: None - EKG Initial EKG Interpretation: Sinus Rhythm, No Acute Injury Pattern, Non-Specific ST Changes Prior: Unchanged - Medical Decision Making The patient presents with cough shortness of breath. She does have a history of COPD. She was not hypoxic. She did have wheezing all lung [place]. Patient was given nebulized breathing treatments and site Medrol. X-ray was obtained which showed no evidence of volume overload or focal infiltrate. Her EKG shows some nonspecific ST changes anterolaterally, but was unchanged from prior. She has not had chest pain. The patient had marked improvement after breathing treatments. She was able to ambulate without hypoxia or tachypnea. At this point, I do feel that she is safe for outpatient therapy. She will be continued on prednisone and doxycycline. She was counseled on concerning symptoms and reasons to return. Impression 1. COPD exacerbation ED Disposition - Plan for ED Patient: Disposition: Home or Assisted Living Instructions: Copd Flare Prescriptions: Prednisone [Deltasone] 40 mg PO DAILY #10 tab Prescription Printed Doxycycline 100 mg PO BID #20 cap Prescription Printed Referrals: Carlos Shultz MD [Primary Care Provider] -
[2019-05-24] MEDS: Albuterol 2.5 MG/3 ML VIAL.NEB. INHALATION ×3 (17:00→17:10)
[2019-05-24] MEDS: Ipratropium/Albuterol Sulfate 3 ML AMPUL.NEB INHALATION (17:00)
[2019-05-24 17:23] VITALS: PULSE 100; RESP 20
[2019-05-24 17:25] LABS: Absolute Lymphocyte Count 1.42 X10^3/uL (0.83-4.51); Absolute Neutrophil Count 6.8 X10^3/uL (2.0-7.7); Basophil# 0.02 X10^3/uL; Basophil% 0.2 % (0-1); Eosinophil# 0.05 X10^3/uL; Eosinophils% 0.6 % (0-5); Hematocrit 37.4 % (37-47); Hemoglobin 12.2 g/dL (12.0-15.0); Lymphocyte # 1.42 X10^3/ul (4.0); Lymphocyte % 16.3 % (19-41); Mean Corp Hgb Conc 32.6 g/dL (32-36); Mean Corpuscular Hgb 30.1 pg (27.0-32.0); Mean Corpuscular Volume 92.3 fL (81-99); Mean Platelet Vol. 9.6 fl (6.2-12.0); Monocyte# 0.42 X10^3/uL; Monocyte% 4.8 % (0-10); NRBC Flagged by Analyzer 0 % (0-5); Neutrophil # 6.75 X10^3/uL (2.7-7.7); Neutrophil % 77.8 % (47-70); Platelet Count 216 K/mm3 (150-450); RBC Distribution Width CV 14.6 % (11.6-14.6); RBC Distribution Width SD 49.1 fl (35.1-43.9); Red Blood Count 4.05 M/mm3 (4.2-5.4); White Blood Count 8.7 K/mm3 (4.4-11.0)
[2019-05-24 17:29] LABS: Anion Gap 4 (5-15); BUN 7 mg/dL (7-18); BUN/Creat Ratio 7.1 RATIO (10-20); Calcium,Total 8.8 mg/dL (8.5-10.1); Chloride 109 mmol/L (98-107); Creatinine, Serum 0.98 mg/dL (0.55-1.02); EST Glomerular Filtration Rate 66 mL/min (>60); Est Glom Filt Rate - Afr Amer 79 mL/min (>60); Estimated Creatinine Clearance 66.61 ml/min; Glucose 103 mg/dL (74-106); Potassium 3.3 mmol/L (3.5-5.1); Sodium Level 140 mmol/L (136-145)
[2019-05-24] MEDS: 0.9% Normal Saline 1,000 ML 150 ML IV (17:29)
[2019-05-24] MEDS: MethylPREDNISolone 125 MG/2 ML Vial IV (17:29)
[2019-05-24 17:30] VITALS: O2SAT 95
--- NOTE | 2019-05-24 17:35 | RAD_ITS ---
STUDY: X-RAY CHEST REASON FOR EXAM: Female, 43 years old. Shortness of breath. TECHNIQUE: PA and lateral views of the chest. COMPARISON: PA and lateral chest x-ray July 31, 2018. FINDINGS: The lungs are clear and expanded. There is no demonstrated pleural abnormality. Normal size heart. Normal mediastinum and leighton. Normal visualized pulmonary arteries. Normal visualized aortic arch and descending thoracic aorta. There are stable mild degenerative changes of the visualized mid thoracic spine. Normal visualized ribs, clavicles, and shoulders. There is no demonstrated abnormality of the visualized soft tissue structures of the upper abdomen. RAD/Chest PA and Lateral IMPRESSION: No acute cardiopulmonary disease. Electronically Signed: Valentin Mitchell MD at 17:50 EDT , Service support ,
[2019-05-24 18:28] VITALS: BP 125/74; PULSE 61; RESP 15; O2SAT 97
== END 2019-05-24 18:30 | disposition home or self-care (01) ==
LOC: ED 16:33
PROVIDERS: Emergency Provider Emergency Medicine; Family Provider Family Medicine; PCP Family Medicine
DX: J44.1 Chronic obstructive pulmonary disease with (acute) exacerbation (principal); F17.200 Nicotine dependence, unspecified, uncomplicated
CPT/HCPCS: 71046; 80048; 85025; 93005; 94640; 96361; 96374; 99285; J7030; A4216

== ENCOUNTER → 2019-11-29 09:59 | Outpatient (CLI) | payer MEDICAID, SELFPAY ==
[2019-11-29 12:57] LABS: Anion Gap 5 (5-15); BUN 9 mg/dL (7-18); BUN/Creat Ratio 9.3 RATIO (10-20); Calcium,Total 8.8 mg/dL (8.5-10.1); Chloride 113 mmol/L (98-107); Cholesterol 249 mg/dL (200); Creatinine, Serum 0.96 mg/dL (0.55-1.02); EST Glomerular Filtration Rate 67 mL/min (>60); Est Glom Filt Rate - Afr Amer 81 mL/min (>60); Glucose 77 mg/dL (74-106); High Density Lipoprotein 35 mg/dL; Potassium 3.5 mmol/L (3.5-5.1); Sodium Level 142 mmol/L (136-145); Triglycerides 187 mg/dL; Very Low Density Lipoprotein 37 mg/dL (5-40)
[2019-12-04 17:44] LABS: ANTINUCLEAR ANTIBODIES DIRECT Negative (Negative)
[2019-12-06 13:07] LABS: CCP IgG Antibodies > 250 units (0-19)
== END ==
PROVIDERS: PCP Family Medicine; Visit Provider Family Medicine
DX: Z00.00 Encounter for general adult medical examination without abnormal findings (principal)
CPT/HCPCS: 36415; 80048; 80061; 82306; 86038; 86200

== ENCOUNTER → 2019-12-20 12:08 | Outpatient (CLI) | payer MEDICAID, SELFPAY ==
[2019-12-20 15:33] LABS: Cholesterol 265 mg/dL (200); High Density Lipoprotein 37 mg/dL; Triglycerides 280 mg/dL; Very Low Density Lipoprotein 56 mg/dL (5-40)
[2019-12-23 16:59] LABS: ANTINUCLEAR ANTIBODIES DIRECT Negative (Negative); Anti-dsDNA Ab <1 IU/mL (0-9)
== END ==
PROVIDERS: PCP Family Medicine; Referring Provider Family Medicine; Visit Provider Family Medicine
DX: M05.79 Rheumatoid arthritis with rheumatoid factor of multiple sites without organ or systems involvement (principal); E78.5 Hyperlipidemia, unspecified
CPT/HCPCS: 36415; 80061; 86038; 86225

== ENCOUNTER 2021-11-22 19:07 | Emergency (ER) | payer MEDICAID, SELFPAY ==
[2021-11-22 19:08] VITALS: BP 144/81; PULSE 97; RESP 14; TEMP 36.2; O2SAT 96; BMI 30.7
--- NOTE | 2021-11-22 20:50 | EKG12_ITS ---
Test Reason : [facility] Blood Pressure : / mmHG Vent. Rate : 071 BPM Atrial Rate : 071 BPM P-R Int : 140 ms QRS Dur : 094 ms QT Int : 416 ms P-R-T Axes : 015 055 -44 degrees QTc Int : 452 ms Normal sinus rhythm T wave abnormality, consider inferior ischemia T wave abnormality, consider anterior ischemia Abnormal ECG Confirmed by KENDRA MARSHALL, IGGY ([id number]), assignment desk editor RAUL RUDD ([id number]) on 11/23/2021 10:02:11 AM Referred By: DR CAM Confirmed By:IGGY GARDNER MD
[2021-11-22 20:51] LABS: Absolute Lymphocyte Count 2.93 X10^3/uL (0.83-4.51); Absolute Neutrophil Count 5.4 X10^3/uL (2.0-7.7); Basophil# 0.04 X10^3/uL; Basophil% 0.4 % (0-1); Eosinophils% 1.1 % (0-5); Hematocrit 37.1 % (37-47); Hemoglobin 13.4 g/dL (12.0-15.0); Lymphocyte # 2.93 X10^3/ul (0.83-4.51); Lymphocyte % 32.9 % (19-41); Mean Corp Hgb Conc 36.1 g/dL (32-36); Mean Corpuscular Hgb 31.5 pg (27.0-32.0); Mean Corpuscular Volume 87.1 fL (81-99); Mean Platelet Vol. 10.9 fl (6.2-12.0); Monocyte# 0.39 X10^3/uL; Monocyte% 4.4 % (0-10); NRBC Flagged by Analyzer 0 % (0-5); Neutrophil # 5.43 X10^3/uL (2.7-7.7); Platelet Count 193 K/mm3 (150-450); RBC Distribution Width SD 41.1 fl (35.1-43.9); Red Blood Count 4.26 M/mm3 (4.2-5.4); White Blood Count 8.9 K/mm3 (4.4-11.0)
[2021-11-22 20:56] VITALS: O2SAT 98
[2021-11-22 21:03] LABS: Alcohol, Blood (Medical)-Serum < 3.0 mg/dL; Anion Gap 5 (5-15); BUN 10 mg/dL (7-18); BUN/Creat Ratio 12.7 RATIO (10-20); Calcium,Total 9.8 mg/dL (8.5-10.1); Chloride 110 mmol/L (98-107); Creatinine, Serum 0.79 mg/dL (0.55-1.02); EST Glomerular Filtration Rate 84 mL/min (>60); Est Glom Filt Rate - Afr Amer 101 mL/min (>60); Estimated Creatinine Clearance 80.92 ml/min; Glucose 146 mg/dL (74-106); Potassium 3.1 mmol/L (3.5-5.1); Sodium Level 138 mmol/L (136-145)
[2021-11-22 21:06] LABS: Internal QC Validated? YES +Cl - CLEAR BKGD; Pregnancy, Serum, hCG Quali. NEGATIVE Negative
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
[2021-11-22 21:10] LABS: Amphetamine Urine VISTA NEGATIVE (<1000 ng/mL); Barbiturate Urine VISTA NEGATIVE (< 200 ng/mL); Benzodiazepine Urine VISTA NEGATIVE (< 200 ng/mL); Cocaine Urine VISTA NEGATIVE (< 300 ng/mL); Ecstacy Urine VISTA POSITIVE (< 500 ng/mL); Methadone Urine VISTA NEGATIVE (< 300 ng/mL); PCP Urine VISTA NEGATIVE (< 25 ng/mL); THC Urine VISTA POSITIVE (< 50 ng/mL); Vista UDS pH Range 5
[2021-11-22 21:47] VITALS: BP 134/79; PULSE 98; RESP 17; TEMP 531; TEMP 987.8; O2SAT 97
[2021-11-22 22:07] VITALS: RESP 16
[2021-11-22 22:47] VITALS: RESP 20
[2021-11-22 23:09] VITALS: RESP 19
[2021-11-23 01:10] VITALS: BP 140/78; PULSE 74; RESP 17; O2SAT 98
[2021-11-23 02:37] VITALS: RESP 17
== END 2021-11-23 02:38 | disposition home or self-care (01) ==
PROVIDERS: Emergency Provider Emergency Medicine; PCP Family Medicine; Visit Provider Emergency Medicine
DX: F32.A Depression, unspecified (principal); M06.9 Rheumatoid arthritis, unspecified; F15.99 Other stimulant use, unspecified with unspecified stimulant-induced disorder; J45.909 Unspecified asthma, uncomplicated; M79.7 Fibromyalgia; E03.9 Hypothyroidism, unspecified; Z79.899 Other long term (current) drug therapy; F17.210 Nicotine dependence, cigarettes, uncomplicated; F12.90 Cannabis use, unspecified, uncomplicated
CPT/HCPCS: 36415; 80048; 80307; 82077; 84703; 85025; 93005; 99282

== ENCOUNTER 2021-12-23 11:00 | Emergency (ER) | payer MEDICAID, SELFPAY ==
[2021-12-23 11:03] VITALS: BP 131/76; PULSE 87; RESP 20; TEMP 36.6; O2SAT 100; BMI 31.0
--- NOTE | 2021-12-23 11:05 | ED.RN ---
PT HAVING SHAKING OF HER FULL BODY THAT IS OFF AND ON. WHEN SHE CONCENTRATES ON SOMETHING ELSE IT STOPS.
[2021-12-23 11:10] VITALS: O2SAT 100
--- NOTE | 2021-12-23 11:21 | EDS_ITS ---
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 Patient cannot tell me what kind of chemicals she was using. She also feels like her tongue might be swollen. Patient also feels anxious like she is having a panic attack. Patient denies any chest pain. Patient denies fever or recent illness. Prior similar symptoms: No PFSH PFSH Medical History (Updated 12/23/21 @ 12:[address] Maribel Randhawa, DO) Asthma Depression Fibromyalgia Hypothyroid Rheumatoid arthritis Status asthmaticus Home Medications albuterol sulfate 1 - 2 puff INHALATION Q4H PRN PRN 06/26/16 [History Last Taken 07/30/18 02:30 2 puffs] gabapentin 900 mg PO TIDCM 06/26/16 [History Last Taken 07/29/18 19:00 900 mg] hydroxyzine pamoate 25 mg PO TID 02/17/17 [History Last Taken 07/29/18 19:00 25 mg] furosemide 20 mg tablet 20 mg PO QDAY 02/15/18 [History Last Taken 07/29/18 08:00 20 mg] levothyroxine 88 mcg tablet 100 mcg PO DAILY tab 02/15/18 [History Last Taken 07/29/18 06:00 100 mcg] mometasone-formoterol HFA 100 mcg-5 mcg/actuation aerosol inhaler 2 puff INHALATION BID 02/15/18 [History Last Taken 07/29/18 19:00 2 puffs] omeprazole 40 mg capsule,delayed release 40 mg PO QDAY 02/15/18 [History Last Taken 07/29/18 08:00 40 mg] paroxetine HCl 10 mg tablet 40 mg PO DAILY tab 02/15/18 [History Last Taken 07/29/18 08:00 40 mg] bupropion HCl [Wellbutrin SR] 150 mg PO BID 07/30/18 [History Last Taken 07/29/18 19:00 150 mg] trazodone 100 mg PO QHS PRN PRN 07/30/18 [History Last Taken Unknown] acetaminophen [Tylenol] 650 mg PO Q6H PRN PRN tablet 08/01/18 [Rx Last Taken Unknown] Allergy/AdvReac Type Severity Reaction Status Date / Time fentanyl Allergy Unknown Verified 11/22/21 19:10 haloperidol [From Haldol] Allergy makes me Verified 11/22/21 19:10 angry quetiapine fumarate Allergy Anaphylaxis Verified 11/22/21 19:10 [From Seroquel] Family History Mother Diabetes Son Thyroid disorder Surgical History S/P S/P tubal ligation Social History Smoking Status: Current every day smoker tobacco type: cigarettes alcohol intake: never ROS ROS ED Constitutional Constitutional ED: Reports systems reviewed and no addt'l complaints, except as documented; Denies body ache(s), change in weight or chills Eyes Eyes: Denies acute decrease in peripheral vision, change in vision, double vision or loss of vision ENT ENT ED: Reports none and other Details: Tongue swelling ; Denies ear pain, lip swelling, loss taste/smell, neck pain, otalgia or sore throat Cardiovascular Cardiovascular: Reports none; Denies abdominal pain, chest pain with activity, leg edema, lightheadedness, palpitations, rapid heart rate or syncope Respiratory/Chest Respiratory/Chest: Reports none and dyspnea; Denies change in mental status, dry cough, hemoptysis, shortness of breath at rest or shortness of breath with exertion Gastrointestinal Gastrointestinal: Reports none; Denies abdominal pain, change in stool character, diarrhea, hematemesis, hematochezia, melena, rectal bleeding or vomiting Genitourinary Genitourinary ED: Reports none; Denies abdominal discomfort, anuria, dysuria, genital pain or polyuria Musculoskeletal Musculoskeletal: Reports none; Denies arthralgias, back pain, difficulty walking, extremity pain, muscle weakness or myalgias Integumentary Reports none; Denies abscess or rash Neurologic Neurologic: Reports none; Denies abnormal gait, confusion, focal weakness, frequent falls, headache(s), loss of vision, numbness, paresthesias, radicular pain, vertigo or weakness Psychiatric Psychiatric: Reports systems reviewed and no addt'l complaints, except as documented and none; Denies behavioral changes, confusion, difficulty concentrating, hallucinations, suicidal ideation, tactile hallucinations or visual hallucinations Endocrine Endocrinology: Denies none, cold intolerance, excessive sweating, fatigue or hea t intolerance Hematologic/Lymphatic Hematologic/Lymphatic: Reports none; Denies anemia, easy bleeding or easy bruising Allergic/Immunologic Allergic/Immunologic ED: Denies as per HPI, none, lip swelling, mouth swelling, throat swelling, tongue swelling or hives EXAM Physical Exam Const Vital Signs: 12/23/21 11:03 12/23/21 11:10 12/23/21 11:59 Temperature 97.8 F Temperature Source Temporal Pulse Rate 87 89 Respiratory Rate 20 H 17 Respiratory Effort Short of Breath Respiratory Pattern Tachypnea Normal Blood Pressure 131/76 H Blood Pressure Mean 94 Pulse Ox 100 Oxygen Delivery Method Room Air Room Air Positive well nourished and well developed General Appearance ED: well developed and NAD HEENT Reports TM's clear and moist mucous membranes HEENT Narrative: No angioedema noted of the tongue or oropharynx normocephalic and atraumatic; Negative for trauma or tenderness Tympanic Membrane ED: Yes TM's clear Eyes PERRL and EOMs intact bilaterally General Eye ED: Negative for pale conjunctiva or scleral icterus Neck no lymphadenopathy, supple and no JVD General: Negative for tenderness Chest Wall inspection of chest normal and palpation of chest normal Chest: Negative for tenderness Resp normal respiratory effort and clear to auscultation bilaterally Effort and Inspection: Negative for respiratory distress or pain with movement Auscultation: Negative for rhonchi, wheezes or diminished lung sounds Cardio regular rate, regular rhythm, S1 normal heart sound, S2 normal heart sound and no murmurs Peripheral Pulses: pulses 2+ throughout GI normal to inspection, nondistended, normoactive bowel sounds, soft to palpation, non-tender, non-distended and no masses Back/Spine no CVA tenderness and no thoracic nor lumbar tenderness Extremity normal to inspection General Extremety ED: Negative for edema General Extremity: Negative for edema Neuro oriented x3, CN's II-XII intact bilaterally, no sensory deficits noted and gait normal Sensorium / Orientation: awake, alert, oriented to person, oriented to place and oriented to time Motor Exam: strength 5/5 throughout and strength abnormal Psych mental status grossly normal Skin no rashes or lesions noted and no wounds MDM MDM MDM Narrative Medical decision making narrative: IV line established on arrival. Patient was given a DuoNeb aerosol. Patient will be given Ativan 1 mg IM. I do not see any evidence of angioedema or respiratory difficulty. I suspect a very large component of her symptomatology is anxiety related. Patient left prior to treatment completion. She eloped from the department without myself being informed she was leaving. Discharge Plan Triage Chief Complaint: Anxiety ED Provider: Maribel Randhawa Dx/Rx/DC Orders Clinical Impression: Anxiety, Acute dyspnea Prescriptions: No Action furosemide 20 mg tablet 20 mg PO QDAY RF: 0 omeprazole 40 mg capsule,delayed release(DR/EC) 40 mg PO QDAY RF: 0 mometasone-formoterol [Dulera] 100-5 mcg/actuation HFA aerosol inhaler 2 puff INHALATION BID RF: 0 gabapentin 300 MG capsule 900 mg PO TIDCM RF: 0 albuterol sulfate 1 INHALER inhaler 1 - 2 puff INHALATION Q4H PRN PRN (Reason: Sob &/Or Wheezing) RF: 0 levothyroxine 88 mcg tablet 100 mcg PO DAILY RF: 0 hydroxyzine pamoate 25 MG capsule 25 mg PO TID RF: 0 paroxetine HCl 10 mg tablet 40 mg PO DAILY RF: 0 bupropion HCl [Wellbutrin SR] 150 MG tablet sustained-release 12 hr 150 mg PO BID RF: 0 trazodone 100 tablet 100 mg PO QHS PRN PRN (Reason: Sleep) RF: 0 acetaminophen [Tylenol] 325 MG tablet 650 mg PO Q6H PRN PRN (Reason: Mild Pain (scale 0-3)/T>100.7) RF: 0 Primary Care Provider: Carlos Shultz Referrals: Carlos Shultz MD [Primary Care Provider] - Disposition Disposition: Elopement
--- NOTE | 2021-12-23 11:25 | ED.RN ---
DR MACIAS AT THE BEDSIDE. PT ONLY ANSWERING SOME QUESTIONS THEN CLOSES HER EYES AND DOES NOT TALK.
[2021-12-23] MEDS: LORazepam 2 MG/ML Syringe 1 MG IM (11:39)
[2021-12-23] MEDS: Ipratropium/Albuterol Sulfate 3 ML AMPUL.NEB INHALATION (11:57)
[2021-12-23 11:59] VITALS: PULSE 89; RESP 17
--- NOTE | 2021-12-23 12:21 | ED.RN ---
PT ANGRY AT STAFF STATING YOU WON'T LET MY VISITORS BACK. THIS RN ATTEMPTED TO EXPLAIN TO PT THAT NO VISITORS ARE HERE FOR HER. PT STATES WELL IM WALKING OUT. NO PINK SLIP NOTED. PT WALK OUT OF DEPARTMENT
--- NOTE | 2021-12-23 12:27 | CM.ED ---
DAMIAN Note NO SW order was put in but this com writer was following due to issue as anxiety. DAMIAN was with another patient and was advised by RN that patient had walked out. Lorin TOMLIN
--- NOTE | 2021-12-23 21:40 | ED.RN ---
[place] pd called to see if patient was still in the hospital PD is looking for patient at this time
== END 2021-12-23 12:50 | disposition left against medical advice (07) ==
PROVIDERS: Emergency Provider Emergency Medicine; PCP Family Medicine; Visit Provider Emergency Medicine
DX: F41.9 Anxiety disorder, unspecified (principal); M06.9 Rheumatoid arthritis, unspecified; J45.909 Unspecified asthma, uncomplicated; F32.A Depression, unspecified; E03.9 Hypothyroidism, unspecified; M79.7 Fibromyalgia; Z79.899 Other long term (current) drug therapy; F17.210 Nicotine dependence, cigarettes, uncomplicated
CPT/HCPCS: 94640; 96372; 99285

== ENCOUNTER 2021-12-30 13:39 | Emergency (ER) | payer MEDICAID, SELFPAY ==
[2021-12-30 13:40] VITALS: BP 139/78; PULSE 96; RESP 16; TEMP 36; O2SAT 97; BMI 28.6
--- NOTE | 2021-12-30 13:52 | EDS_ITS ---
HPI HPI - Psych History of Present Illness Chief Complaint: Anxiety Informant: patient Onset/Context/Timing Onset: Weeks (1) Context: Gradual Onset Timing: Continuous Worsened by: - (Nothing) Relieved by: Nothing Associated Symptoms Associated Symptoms - Psych: Negative for Depressed, Suicidal Thoughts, Visual Hallucinations and Auditory Hallucinations Narrative Narrative: Patient presents with increasing anxiety that has been getting worse over the past week. Patient was seen here 1 week ago and was given a dose of Ativan. Patient states that helps. Patient states it resets my brain. Patient states she feels anxious all over. Patient states nothing makes it worse and nothing makes it better. Patient denies any suicidal ideations or homicidal ideations. Patient denies any chest pain or shortness of breath. Patient denies any fevers or chills. Patient states she has an appoint with her counselor next week. [facility] Medical History (Updated 12/30/21 @ 14:[address] Donald Stoner, DO) Asthma Depression Fibromyalgia Hypothyroid Rheumatoid arthritis Status asthmaticus Home Medications albuterol sulfate 1 - 2 puff INHALATION Q4H PRN PRN 06/26/16 [History Last Taken 07/30/18 02:30 2 puffs] gabapentin 900 mg PO TIDCM 06/26/16 [History Last Taken 07/29/18 19:00 900 mg] hydroxyzine pamoate 25 mg PO TID 02/17/17 [History Last Taken 07/29/18 19:00 25 mg] furosemide 20 mg tablet 20 mg PO QDAY 02/15/18 [History Last Taken 07/29/18 08:00 20 mg] levothyroxine 88 mcg tablet 100 mcg PO DAILY tab 02/15/18 [History Last Taken 07/29/18 06:00 100 mcg] mometasone-formoterol HFA 100 mcg-5 mcg/actuation aerosol inhaler 2 puff INHALATION BID 02/15/18 [History Last Taken 07/29/18 19:00 2 puffs] omeprazole 40 mg capsule,delayed release 40 mg PO QDAY 02/15/18 [History Last Taken 07/29/18 08:00 40 mg] paroxetine HCl 10 mg tablet 40 mg PO DAILY tab 02/15/18 [History Last Taken 07/29/18 08:00 40 mg] bupropion HCl [Wellbutrin SR] 150 mg PO BID 07/30/18 [History Last Taken 07/29/18 19:00 150 mg] trazodone 100 mg PO QHS PRN PRN 07/30/18 [History Last Taken Unknown] acetaminophen [Tylenol] 650 mg PO Q6H PRN PRN tablet 08/01/18 [Rx Last Taken Unknown] Allergy/AdvReac Type Severity Reaction Status Date / Time quetiapine fumarate Allergy Anaphylaxis Verified 12/30/21 13:43 [From Seroquel] fentanyl AdvReac Unknown Verified 12/30/21 13:43 haloperidol [From Haldol] AdvReac makes me Verified 12/30/21 13:43 angry Family History Mother Diabetes Son Thyroid disorder Surgical History S/P S/P tubal ligation Social History Smoking Status: Current every day smoker tobacco type: cigarettes alcohol intake: never ROS ROS ED Constitutional Constitutional ED: Denies chills or fever(s) Eyes Eyes: Denies blurry vision or change in vision ENT ENT ED: Denies rhinorrhea or sore throat Cardiovascular Cardiovascular: Denies chest pain or palpitations Respiratory/Chest Respiratory/Chest: Denies cough or dyspnea Gastrointestinal Gastrointestinal: Denies nausea or vomiting Genitourinary Genitourinary ED: Denies dysuria or hematuria Musculoskeletal Musculoskeletal: Denies back pain or neck pain Integumentary Denies abscess or rash Neurologic Neurologic: Denies headache(s) or weakness Psychiatric Psychiatric: Reports anxiety; Denies suicidal ideation or suicidal thoughts Allergic/Immunologic Allergic/Immunologic ED: Denies mouth swelling or urticaria EXAM Physical Exam Const Vital Signs: 12/30/21 13:40 Temperature 96.8 F L Temperature Source Temporal Pulse Rate 96 Respiratory Rate 16 Blood Pressure 139/78 H Blood Pressure Mean 98 Pulse Ox 97 Oxygen Delivery Method Room Air Positive well nourished, well developed and unkempt General Appearance ED: unkempt, well developed and NAD HEENT Reports moist mucous membranes Neck supple and no JVD Resp normal respiratory effort and clear to auscultation bilaterally Cardio Rate: regular rate Rhythm: regular rhythm GI non-tender Palpation: soft Neuro oriented x3, CN's II-XII intact bilaterally and no sensory deficits noted Sensorium / Orientation: alert Motor Exam: strength 5/5 throughout and muscle tone normal throughout Psych mental status grossly normal Appearance: unkempt Attitude: calm Activity / Motor Behavior: appropriate eye contact Speech: normal speech Thought Content: No suicidality and No homicidality MDM MDM MDM Narrative Medical decision making narrative: Patient was given a dose of Ativan here. Patient was instructed to follow-up with her counselor appointment next week as scheduled. Patient was instructed to return if worse in any way. I do not feel the patient requires a prescription for Ativan at this time. Patient understands and is agreeable with the plan. All questions were answered. Discharge Plan Triage Chief Complaint: Anxiety ED Provider: Donald Stoner Dx/Rx/DC Orders Clinical Impression: Anxiety, Fibromyalgia Instructions: ED Anxiety Reaction Prescriptions: No Action furosemide 20 mg tablet 20 mg PO QDAY RF: 0 omeprazole 40 mg capsule,delayed release(DR/EC) 40 mg PO QDAY RF: 0 mometasone-formoterol [Dulera] 100-5 mcg/actuation HFA aerosol inhaler 2 puff INHALATION BID RF: 0 gabapentin 300 MG capsule 900 mg PO TIDCM RF: 0 albuterol sulfate 1 INHALER inhaler 1 - 2 puff INHALATION Q4H PRN PRN (Reason: Sob &/Or Wheezing) RF: 0 levothyroxine 88 mcg tablet 100 mcg PO DAILY RF: 0 hydroxyzine pamoate 25 MG capsule 25 mg PO TID RF: 0 paroxetine HCl 10 mg tablet 40 mg PO DAILY RF: 0 bupropion HCl [Wellbutrin SR] 150 MG tablet sustained-release 12 hr 150 mg PO BID RF: 0 trazodone 100 tablet 100 mg PO QHS PRN PRN (Reason: Sleep) RF: 0 acetaminophen [Tylenol] 325 MG tablet 650 mg PO Q6H PRN PRN (Reason: Mild Pain (scale 0-3)/T>100.7) RF: 0 Primary Care Provider: Carlos Shultz Referrals: Carlos Shultz MD [Primary Care Provider] - 5-7 Days Disposition Disposition: Home, Self Care
[2021-12-30] MEDS: LORazepam 1 MG Tablet PO (14:04)
== END 2021-12-30 14:16 | disposition home or self-care (01) ==
LOC: ED 14:08
PROVIDERS: Emergency Provider Emergency Medicine; PCP Family Medicine; Visit Provider Emergency Medicine
DX: F41.9 Anxiety disorder, unspecified (principal); M06.9 Rheumatoid arthritis, unspecified; M79.7 Fibromyalgia; E03.9 Hypothyroidism, unspecified; F32.A Depression, unspecified; J45.909 Unspecified asthma, uncomplicated; Z79.899 Other long term (current) drug therapy; F17.210 Nicotine dependence, cigarettes, uncomplicated
CPT/HCPCS: 99283

== ENCOUNTER 2022-01-03 10:50 | Emergency (ER) | payer MEDICAID, SELFPAY ==
[2022-01-03 10:50] VITALS: BP 168/97; PULSE 106; RESP 30; TEMP 37.1; O2SAT 97; BMI 29.5
--- NOTE | 2022-01-03 10:52 | EKG12_ITS ---
Test Reason : MENTAL CHECK Blood Pressure : / mmHG Vent. Rate : 099 BPM Atrial Rate : 099 BPM P-R Int : 196 ms QRS Dur : 090 ms QT Int : 332 ms P-R-T Axes : 029 052 -03 degrees QTc Int : 426 ms Normal sinus rhythm Nonspecific ST and T wave abnormality Abnormal ECG Confirmed by ELAINA MARSHALL, SONIDO ([id number]), mapping editor RAUL RUDD ([id number]) on 01/04/2022 8:56:46 AM Referred By: FAVIAN Confirmed By:SONIDO DELANEY MD
--- NOTE | 2022-01-03 10:53 | EDS_ITS ---
HPI HPI - Psych History of Present Illness Chief Complaint: Mental Health Narrative Narrative: Patient presents to the ED she is tell me that she needs to be transferred to psychiatric facility. She cannot tell me why. She is having active myoclonic jerking, she does not know why this is happening. She is denying suicidal ideations, was very difficult to get a history or present illness so she will not answer have my questions due to active gagging and myoclonic jerking from what I can gather she has had no injury recently, she is denying recent fever or chills. No history of seizures. She is not withdrawing from anything. [facility] Medical History (Updated 01/03/22 @ 11:[address] Carlos Cruz MD) Asthma Depression Fibromyalgia Hypothyroid Rheumatoid arthritis Status asthmaticus Home Medications albuterol sulfate 1 - 2 puff INHALATION Q4H PRN PRN 06/26/16 [History Last Taken 07/30/18 02:30 2 puffs] levothyroxine 88 mcg tablet 100 mcg PO DAILY tab 02/15/18 [History Last Taken 07/29/18 06:00 100 mcg] mometasone-formoterol HFA 100 mcg-5 mcg/actuation aerosol inhaler 2 puff INHALATION BID 02/15/18 [History Last Taken 07/29/18 19:00 2 puffs] paroxetine HCl 10 mg tablet 40 mg PO DAILY tab 02/15/18 [History Last Taken 07/29/18 08:00 40 mg] trazodone 100 mg PO QHS PRN PRN 07/30/18 [History Last Taken Unknown] dextroamphetamine-amphetamine [Adderall] 10 mg PO DAILY 1 Days #1 tab 01/03/22 [Rx Last Taken Unknown] Allergy/AdvReac Type Severity Reaction Status Date / Time quetiapine fumarate Allergy Anaphylaxis Verified 01/03/22 10:58 [From Seroquel] fentanyl AdvReac Unknown Verified 01/03/22 10:58 haloperidol [From Haldol] AdvReac makes me Verified 01/03/22 10:58 angry Family History Mother Diabetes Son Thyroid disorder Surgical History S/P S/P tubal ligation Social History Smoking Status: Current every day smoker tobacco type: cigarettes alcohol intake: never ROS ROS ED ROS Narrative Past medical history: Reviewed, includes fibromyalgia, anxiety depression, other unknown psychiatric illness that is being worked up, asthma, history of rheumatoid arthritis Medications: Reviewed Social history: Noncontributory Review of systems: Unable secondary to her current mental status however she is denying any difficulty breathing chest pain head injury urinary symptoms or . EXAM Physical Exam Narrative Exam Narrative: Physical exam General: Patient is actively gagging and has multiple myoclonic jerks, she is lucid throughout these myoclonic jerks and she follows commands. Head: Normocephalic, Atraumatic Eyes: Conjunctiva not pale ENT: Moist mucous membranes Neck: Supple, Nontender, No lymphadenopathy Cardiovascular: Slightly tachycardic but regular rhythm Respiratory: No distress, CTA bilaterally Abdomen: Soft, Nontender, Nondistended Back: Nontender, Normal Inspection. Negative for: CVA tenderness Extremities: Nontender, No edema Skin: Normal color, No rash Neurological: Alert, Normal Strength, Normal Sensation Psychological: Extremely anxious. She is denying any kind of suicidal ideations. Const Vital Signs: 01/03/22 10:50 Temperature 98.7 F Temperature Source Temporal Pulse Rate 106 H Respiratory Rate 30 H Blood Pressure 168/97 H Blood Pressure Mean 120 Pulse Ox 97 Oxygen Delivery Method Room Air MDM MDM Treatment and Re-Evaluation Narrative: Patient stopped her myoclonic jerking's and gagging, she is now lucid and coherent and wants to be discharged. I signed her out AMA, she is not suicidal she is lucid and coherent and can make up her own mind. She requested Adderall from the ED however this is not formulary in our hospital I am reluctant to give her prescription for multiple tabs for home since they do have an abuse potential. I will discharge her AGAINST MEDICAL ADVICE, she is told she can come back and see us. I offered her to talk to one of her counselors but she is refusing. She tells me she has to get back home to her cat. Discharge Plan Triage Chief Complaint: Mental Health ED Provider: Carlos Cruz Dx/Rx/DC Orders Clinical Impression: Anxiety, Jerking Instructions: Anxiety Disorders Tx Therapy Prescriptions: New dextroamphetamine-amphetamine [Adderall] 10 mg tablet 10 mg PO DAILY 1 Days Qty: 1 RF: 0 No Action mometasone-formoterol [Dulera] 100-5 mcg/actuation HFA aerosol inhaler 2 puff INHALATION BID RF: 0 albuterol sulfate 1 INHALER inhaler 1 - 2 puff INHALATION Q4H PRN PRN (Reason: Sob &/Or Wheezing) RF: 0 levothyroxine 88 mcg tablet 100 mcg PO DAILY RF: 0 paroxetine HCl 10 mg tablet 40 mg PO DAILY RF: 0 trazodone 100 tablet 100 mg PO QHS PRN PRN (Reason: Sleep) RF: 0 Primary Care Provider: Carlos Shlutz Referrals: Carlos Shultz MD [Primary Care Provider] - 2 Days Disposition Disposition: Against Medical Advice
--- NOTE | 2022-01-03 11:10 | ED.RN ---
Pt asked Yarleis RT what happens if I just leave. Viviana Hutchinson. RN at bedside questioning patient about why she wants to leave. Pt states she wants to go to [facility]. Viviana informed pt that pt needs to be evaluated by crisis to determine placement. Pt states she wants to leave. Viviana informed JESSICA Tsai paperwork printed.
--- NOTE | 2022-01-03 11:18 | ED.RN ---
This rn to the bedside to discuss and have pt sign AMA form. PT states she wants an adderall before she leaves. This RN infroms Dr. Cruz, he returns to the bedside at this time and explains AMA form. Pt still wants to leave AMA, paperwork signed at this time.
== END 2022-01-03 11:25 | disposition left against medical advice (07) ==
PROVIDERS: Emergency Provider Emergency Medicine; PCP Family Medicine; Visit Provider Emergency Medicine
DX: F41.9 Anxiety disorder, unspecified (principal); M06.9 Rheumatoid arthritis, unspecified; G25.3 Myoclonus; J45.909 Unspecified asthma, uncomplicated; F32.A Depression, unspecified; M79.7 Fibromyalgia; E03.9 Hypothyroidism, unspecified; Z79.899 Other long term (current) drug therapy; F17.210 Nicotine dependence, cigarettes, uncomplicated; Z53.21 Procedure and treatment not carried out due to patient leaving prior to being seen by health care provider
CPT/HCPCS: 93005; 99283

== ENCOUNTER 2022-01-04 08:26 | Emergency (ER) | payer MEDICAID, SELFPAY ==
[2022-01-04 08:26] VITALS: BP 158/60; PULSE 99; RESP 16; TEMP 36.6; O2SAT 100; BMI 28.8
--- NOTE | 2022-01-04 08:51 | EDS_ITS ---
HPI HPI - Psych History of Present Illness Chief Complaint: Suicidal Informant: patient Narrative Narrative: Patient is a 46-year-old female with history of anxiety, rheumatoid arthritis, asthma, fibromyalgia, ADHD and depression presenting with suicidal thoughts. Patient was seen to the ER for similar symptoms yesterday. She ultimately left AGAINST MEDICAL ADVICE however yesterday she was denied any suicidal thoughts. Today she states I hate myself. I do want to wake up anymore and I want to . She does not have a plan on how she would do it she states I just do not care anymore. She states is been worsening over the past few months. Patient states has been compliant with her Synthroid and paroxetine. Patient has had previous psychiatric admissions has not had any in years. She does not currently see a psychiatrist or counselor. She denies any homicidal ideations but notes that she is jealous of other people's lives. She states that she gets paranoid and sometimes hears people talking about her when she is at home alone. She states that she gave her cat to her neighbor to watch but the cat is mean and bites. She also states that every time she plug something into her house she gets shocked. Patient denies any new physical complaints. She states she has chronic joint and muscle pains but this is unchanged. She denies any alcohol use. Does use tobacco. Last used marijuana yesterday but states she has since quit. [facility] Medical History (Updated 01/04/22 @ 11:[address] Selene Miranda, DO) Asthma Depression Fibromyalgia Hypothyroid Rheumatoid arthritis Status asthmaticus Home Medications albuterol sulfate 1 - 2 puff INHALATION Q4H PRN PRN 06/26/16 [History Last Taken 07/30/18 02:30 2 puffs] levothyroxine 88 mcg tablet 100 mcg PO DAILY tab 02/15/18 [History Last Taken 07/29/18 06:00 100 mcg] mometasone-formoterol HFA 100 mcg-5 mcg/actuation aerosol inhaler 2 puff INHALATION BID 02/15/18 [History Last Taken 07/29/18 19:00 2 puffs] paroxetine HCl 10 mg tablet 40 mg PO DAILY tab 02/15/18 [History Last Taken 07/29/18 08:00 40 mg] trazodone 100 mg PO QHS PRN PRN 07/30/18 [History Last Taken Unknown] Allergy/AdvReac Type Severity Reaction Status Date / Time quetiapine fumarate Allergy Anaphylaxis Verified 01/04/22 08:26 [From Seroquel] fentanyl AdvReac Unknown Verified 01/04/22 08:26 haloperidol [From Haldol] AdvReac makes me Verified 01/04/22 08:26 angry Family History Mother Diabetes Son Thyroid disorder Surgical History S/P S/P tubal ligation Social History Smoking Status: Current every day smoker tobacco type: cigarettes alcohol intake: never ROS ROS ED Constitutional Constitutional ED: Denies chills or fever(s) Eyes Eyes: Denies change in vision ENT ENT ED: Denies rhinorrhea or sore throat Cardiovascular Cardiovascular: Denies chest pain Respiratory/Chest Respiratory/Chest: Denies dyspnea Gastrointestinal Gastrointestinal: Denies abdominal pain or vomiting Musculoskeletal Musculoskeletal: Reports arthralgias and myalgias Integumentary Denies rash Neurologic Neurologic: Denies headache(s) Psychiatric Psychiatric: Reports anxiety, depression and suicidal thoughts; Denies suicidal ideation EXAM Physical Exam Const Vital Signs: 01/04/22 08:26 01/04/22 12:26 Temperature 97.8 F Temperature Source Temporal Pulse Rate 99 Respiratory Rate 16 16 Blood Pressure 158/60 H Blood Pressure Mean 92 Pulse Ox 100 Oxygen Delivery Method Room Air Positive well nourished and well developed General Appearance ED: well developed and NAD HEENT normocephalic and atraumatic Eyes PERRL Neck supple Resp normal respiratory effort and clear to auscultation bilaterally Cardio no murmurs Rate: regular rate Rhythm: regular rhythm GI non-distended Palpation: soft Extremity normal to inspection General Extremety ED: Negative for edema or tenderness General Extremity: Negative for edema Neuro oriented x3 Neuro Narrative: no jerking movements appreciated Sensorium / Orientation: alert Motor Exam: muscle tone normal throughout Psych Appearance: grossly normal Attitude: calm, paranoid and bizarre Mood & Affect: depressed and anxious Thought Process: disorganized Thought Content: suicidality and No homicidality Attention / Concentration: attention grossly intact Memory / Cognition: memory grossly intact Insight: fair Skin Lesions: no lesions Rashes: no rashes MDM MDM MDM Narrative Medical decision making narrative: Patient evaluated for depression and some suicidal ideations. Patient does not have a plan but she states she wants to . I do think patient benefit from psychiatric evaluation and she is agreeable to this. Patient is medically cleared. Her potassium is 3.3. She is given a dose of oral replacement. Urine tox is positive only for cannabis. Patient accepted at [facility] [place], [place] by Dr. Vo. Lab Data Attestation: I reviewed the patient's lab results. Labs: Laboratory Results - last 24 hr 01/04/22 01/04/22 01/04/22 09:07 09:07 09:07 WBC 9.5 RBC 3.89 L Hgb 11.8 L Hct 35.7 L MCV 91.8 MCH 30.3 MCHC 33.1 RDW Std Deviation 45.8 H RDW Coeff of Lola 13.5 Plt Count 217 MPV 9.7 Immature Gran % (Auto) 0.400 Neut % (Auto) 83.7 H Lymph % (Auto) 11.6 L [place] % (Auto) 3.8 Eos % (Auto) 0.2 Baso % (Auto) 0.3 Absolute Neuts (auto) 8.0 H Absolute Lymphs (auto) 1.10 Nucleated RBC % 0 Sodium 138 Potassium 3.3 L Chloride 107 Carbon Dioxide 25.0 Anion Gap 6 BUN 6 L Creatinine 0.65 Estim Creat Clear Calc 97.31 Est GFR (MDRD) Af Amer 126 Est GFR (MDRD) Non-Af 104 BUN/Creatinine Ratio 9.2 L Glucose 79 Calcium 9.4 Total Bilirubin 0.40 AST 15 ALT 19 Alkaline Phosphatase 103 Total Protein 7.8 Albumin 3.2 Globulin 4.6 H Albumin/Globulin Ratio 0.7 L TSH 3.61 Serum , Qual Urine Opiates Screen Urine Methadone Screen Ur Barbiturates Screen Ur Phencyclidine Scrn Ur Amphetamines Screen MDMA (Ecstasy) Screen U Benzodiazepines Scrn Urine Cocaine Screen U Cannabinoids Screen Ur Drug Screen Comment Ethyl Alcohol < 3.0 01/04/22 01/04/22 09:07 09:51 WBC RBC Hgb Hct MCV MCH MCHC RDW Std Deviation RDW Coeff of Lola Plt Count MPV Immature Gran % (Auto) Neut % (Auto) Lymph % (Auto) [place] % (Auto) Eos % (Auto) Baso % (Auto) Absolute Neuts (auto) Absolute Lymphs (auto) Nucleated RBC % Sodium Potassium Chloride Carbon Dioxide Anion Gap BUN Creatinine Estim Creat Clear Calc Est GFR (MDRD) Af Amer Est GFR (MDRD) Non-Af BUN/Creatinine Ratio Glucose Calcium Total Bilirubin AST ALT Alkaline Phosphatase Total Protein Albumin Globulin Albumin/Globulin Ratio TSH Serum , Qual NEGATIVE Urine Opiates Screen NEGATIVE Urine Methadone Screen NEGATIVE Ur Barbiturates Screen NEGATIVE Ur Phencyclidine Scrn NEGATIVE Ur Amphetamines Screen NEGATIVE MDMA (Ecstasy) Screen NEGATIVE U Benzodiazepines Scrn NEGATIVE Urine Cocaine Screen NEGATIVE U Cannabinoids Screen POSITIVE H Ur Drug Screen Comment Ethyl Alcohol Rhythm Strip Rhythm Strip: Sinus Rhythm Rate: 98 Ectopy: None EKG Initial EKG: Attestation: I personally reviewed and interpreted this EKG as follows: Interpretation: Sinus Rhythm Comments: Normal sinus rhythm at a rate of 98 Normal axis Normal intervals T wave inversion in 3 and aVF No significant change critter prior EKG yesterday Discharge Plan Triage Chief Complaint: Suicidal ED Provider: Selene Miranda Dx/Rx/DC Orders Clinical Impression: Depression with suicidal ideation Prescriptions: No Action mometasone-formoterol [Dulera] 100-5 mcg/actuation HFA aerosol inhaler 2 puff INHALATION BID RF: 0 albuterol sulfate 1 INHALER inhaler 1 - 2 puff INHALATION Q4H PRN PRN (Reason: Sob &/Or Wheezing) RF: 0 levothyroxine 88 mcg tablet 100 mcg PO DAILY RF: 0 paroxetine HCl 10 mg tablet 40 mg PO DAILY RF: 0 trazodone 100 tablet 100 mg PO QHS PRN PRN (Reason: Sleep) RF: 0 Primary Care Provider: Carlos Shultz Referrals: Carlos Shultz MD [Primary Care Provider] - Disposition Disposition: Psychiatric Hospital or Unit Discharge Location: [facility]
--- NOTE | 2022-01-04 08:51 | EKG12_ITS ---
Test Reason : MENTAL Blood Pressure : / mmHG Vent. Rate : 098 BPM Atrial Rate : 098 BPM P-R Int : 172 ms QRS Dur : 088 ms QT Int : 326 ms P-R-T Axes : 049 061 -32 degrees QTc Int : 416 ms Normal sinus rhythm Nonspecific T wave abnormality Abnormal ECG Confirmed by ELAINA MARSHALL, SONIDO ([id number]), design editor RAUL RUDD ([id number]) on 01/06/2022 10:53:12 AM Referred By: ALEIDA Confirmed By:SONIDO DELANEY MD
[2022-01-04 09:18] LABS: Basophil# 0.03 X10^3/uL; Basophil% 0.3 % (0-1); Eosinophil# 0.02 X10^3/uL; Eosinophils% 0.2 % (0-5); Hematocrit 35.7 % (37-47); Hemoglobin 11.8 g/dL (12.0-15.0); Lymphocyte % 11.6 % (19-41); Mean Corp Hgb Conc 33.1 g/dL (32-36); Mean Corpuscular Hgb 30.3 pg (27.0-32.0); Mean Corpuscular Volume 91.8 fL (81-99); Mean Platelet Vol. 9.7 fl (6.2-12.0); Monocyte# 0.36 X10^3/uL; Monocyte% 3.8 % (0-10); NRBC Flagged by Analyzer 0 % (0-5); Neutrophil # 7.96 X10^3/uL (2.7-7.7); Neutrophil % 83.7 % (47-70); Platelet Count 217 K/mm3 (150-450); RBC Distribution Width CV 13.5 % (11.6-14.6); RBC Distribution Width SD 45.8 fl (35.1-43.9); Red Blood Count 3.89 M/mm3 (4.2-5.4); White Blood Count 9.5 K/mm3 (4.4-11.0)
[2022-01-04 09:34] LABS: Internal QC Validated? YES +Cl - CLEAR BKGD; Pregnancy, Serum, hCG Quali. NEGATIVE Negative
[2022-01-04 09:38] LABS: Alcohol, Blood (Medical)-Serum < 3.0 mg/dL
[2022-01-04 09:40] LABS: ALB/GLOB Ratio 0.7 RATIO (0.9-2.4); AST(SGOT) 15 U/L (15-37); Alanine Aminotransfer ALT/SGPT 19 U/L (13-56); Albumin, Serum 3.2 g/dL (3.2-5.0); Alkaline Phosphatase 103 U/L (45-117); Anion Gap 6 (5-15); BUN 6 mg/dL (7-18); BUN/Creat Ratio 9.2 RATIO (10-20); Calcium,Total 9.4 mg/dL (8.5-10.1); Chloride 107 mmol/L (98-107); Creatinine, Serum 0.65 mg/dL (0.55-1.02); EST Glomerular Filtration Rate 104 mL/min (>60); Est Glom Filt Rate - Afr Amer 126 mL/min (>60); Estimated Creatinine Clearance 97.31 ml/min; Globulin 4.6 g/dL (2.2-4.2); Glucose 79 mg/dL (74-106); Potassium 3.3 mmol/L (3.5-5.1); Protein, Total 7.8 g/dL (6.4-8.2); Sodium Level 138 mmol/L (136-145); Thyroid Stim Hormone (TSH) 3.61 uIU/mL (0.358-3.74)
[2022-01-04 10:12] LABS: Amphetamine Urine VISTA NEGATIVE (<1000 ng/mL); Barbiturate Urine VISTA NEGATIVE (< 200 ng/mL); Benzodiazepine Urine VISTA NEGATIVE (< 200 ng/mL); Cocaine Urine VISTA NEGATIVE (< 300 ng/mL); Ecstacy Urine VISTA NEGATIVE (< 500 ng/mL); Methadone Urine VISTA NEGATIVE (< 300 ng/mL); PCP Urine VISTA NEGATIVE (< 25 ng/mL); THC Urine VISTA POSITIVE (< 50 ng/mL); Vista UDS pH Range 6
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
--- NOTE | 2022-01-04 11:43 | CM.ED ---
Social Work Telephone call to [facility]. Lamar reports to have open beds. Clinical information faxed. Telephone call to [place] [place]. Mari reports to have open beds. [facility] fax[facility] Clinical information faxed. Will continue to follow. PLAN: Inpatient psychiatric placement. Isaias KING, SONY
[2022-01-04 12:26] VITALS: RESP 16
--- NOTE | 2022-01-04 12:32 | CM.ED ---
Social Work Telephone call from [facility]isha [facility]. Patient accepted but before Tisha is able to provide admitting information will need pink slip. This social media director faxed [facility] slip. Marc Troy to call this social media director when pink slip has been obtained. [facility] Referral canceled. PLAN: Marc Troy. Will continue to follow. Isaias KING, SONY
--- NOTE | 2022-01-04 13:12 | CM.ED ---
Social Work Telephone call from Tisha Hayes. Patient accepted by Dr. Vo. Nurse to call report to [phone]. Medical team updated. Patient updated. Patient request for this social psychologist to call patient mother, Marleny Ascencio at [phone]. Telephone call to Marleny, no answer. No voicemail set up. PLAN: Marc Troy. Isaias KING, KHOA-S
[2022-01-04] MEDS: Potassium Chloride Oral Tablet 20 MEQ PO (13:35)
[2022-01-04 13:38] VITALS: BP 132/69; PULSE 98; RESP 18; O2SAT 100
[2022-01-04 14:00] VITALS: RESP 18
[2022-01-04 14:47] VITALS: BP 132/69; PULSE 98; RESP 18; O2SAT 100
== END 2022-01-04 15:06 ==
PROVIDERS: Emergency Provider Emergency Medicine; PCP Family Medicine; Visit Provider Emergency Medicine
DX: F32.A Depression, unspecified (principal); M06.9 Rheumatoid arthritis, unspecified; R45.851 Suicidal ideations; F41.9 Anxiety disorder, unspecified; M79.7 Fibromyalgia; J45.909 Unspecified asthma, uncomplicated; E03.9 Hypothyroidism, unspecified; Z79.899 Other long term (current) drug therapy; F90.9 Attention-deficit hyperactivity disorder, unspecified type; F17.210 Nicotine dependence, cigarettes, uncomplicated; F12.90 Cannabis use, unspecified, uncomplicated
CPT/HCPCS: 36415; 80053; 80307; 82077; 84443; 84703; 85025; 87811; 93005; 99285

== ENCOUNTER → 2022-05-14 | Outpatient (CLI) | payer MEDICAID, SELFPAY ==
[2022-05-14 11:45] LABS: Anion Gap 4 (5-15); BUN 9 mg/dL (7-18); BUN/Creat Ratio 11.2 RATIO (10-20); Calcium,Total 9.4 mg/dL (8.5-10.1); Chloride 107 mmol/L (98-107); Cholesterol 236 mg/dL (200); EST Glomerular Filtration Rate 82 mL/min (>60); Est Glom Filt Rate - Afr Amer 99 mL/min (>60); Free T3 2.7 pg/mL (2.18-3.98); Glucose 83 mg/dL (74-106); High Density Lipoprotein 58 mg/dL; Potassium 4.1 mmol/L (3.5-5.1); Sodium Level 139 mmol/L (136-145); T4 Free Direct 1.11 ng/dL (0.76-1.46); Thyroid Stim Hormone (TSH) 4.09 uIU/mL (0.358-3.74); Triglycerides 122 mg/dL; Very Low Density Lipoprotein 24 mg/dL (5-40)
== END | disposition home or self-care (01) ==
LOC: LAB 08:52
PROVIDERS: PCP Family Medicine; Referring Provider Family Medicine; Visit Provider Family Medicine
DX: E03.9 Hypothyroidism, unspecified (principal); E78.5 Hyperlipidemia, unspecified
CPT/HCPCS: 36415; 80048; 80061; 84439; 84443; 84481

== ENCOUNTER 2022-06-09 09:59 | Emergency (ER) | payer MEDICAID, SELFPAY ==
[2022-06-09 09:59] VITALS: BP 139/83; PULSE 111; RESP 18; TEMP 36.6; O2SAT 96; BMI 36.8
--- NOTE | 2022-06-09 10:43 | EX.ED.DYSGE1 ---
HPI History of Present Illness Chief Complaint: Rash Narrative Narrative: Patient who denies significant past medical history presents with itchy rash that began on her arms 2 months ago. She states that has continuingly spread to the back of her torso, face, and now spreading to her legs. She was seen by her primary care physician and put on a prednisone burst for 5 days which started take care of the problem, but she states that it came back and started to spread more. She was told by visiting nurse that it appeared like she might have scabies. She denies any fever or chills. No drainage of purulent material from the itchy rash. She has been applying calamine lotion with moderate success. She presents because she was told that she might have scabies. [facility] Medical History (Updated 06/09/22 @ 10:51 by Richard Robison MD) Asthma Depression Fibromyalgia Hypothyroid Rheumatoid arthritis Status asthmaticus Home Medications albuterol sulfate 90 mcg/actuation aerosol inhaler 1 - 2 puff inhalation Q4H PRN PRN Sob &/Or Wheezing 06/26/16 [History Last Taken 07/30/18 02:30 2 puffs] levothyroxine 88 mcg tablet 100 mcg PO DAILY thyroid 02/15/18 [History Last Taken 07/29/18 06:00 100 mcg] mometasone-formoterol HFA 100 mcg-5 mcg/actuation aerosol inhaler (Dulera) 2 puff inhalation BID asthma 02/15/18 [History Last Taken 07/29/18 19:00 2 puffs] paroxetine HCl 10 mg tablet 40 mg PO DAILY anxiety 02/15/18 [History Last Taken 07/29/18 08:00 40 mg] trazodone 100 mg tablet 100 mg PO QHS PRN PRN Sleep 07/30/18 [History Last Taken Unknown] permethrin 5 % topical cream (Elimite) 1 applic topical Q14D 2 doses #60 grams 06/09/22 [Rx Last Taken Unknown] Allergy/AdvReac Type Severity Reaction Status Date / Time quetiapine fumarate Allergy Anaphylaxis Verified 06/09/22 10:01 [From Seroquel] fentanyl AdvReac Unknown Verified 06/09/22 10:01 haloperidol [From Haldol] AdvReac makes me Verified 06/09/22 10:01 angry Family History Mother Diabetes Son Thyroid disorder Surgical History S/P S/P tubal ligation Social History Smoking Status: Current every day smoker tobacco type: cigarettes alcohol intake: never ROS ROS ED ROS Narrative Constitutional: No fever, no chills. HEENT: No sore throat. No neck pain. No loss of vision. No rhinorrhea. Cardiovascular: No chest pain. No palpitations. No pedal edema. Respiratory: No cough, no shortness of breath. Abdominal: No abdominal pain. No nausea. No vomiting. Genitourinary: No dysuria. No hematuria. Musculoskeletal: No myalgias. No arthralgias. Neurologic: No headaches. No dizziness. No lightheadedness. Skin: Positive maculopapular, itchy rash. Started on arms, spread to torso, and now face and legs. No change in color. Psychiatric: No depression. No anxiety. EXAM Physical Exam Narrative Exam Narrative: Afebrile. Vital signs noted. Nontoxic-appearing. HEENT: Normocephalic. Atraumatic. PERRL, EOMI. Neck soft and supple. No point tenderness or step off. Cardiovascular: Regular rate and rhythm. No murmurs, rubs, or gallops appreciated. Respiratory: No tachypnea. Lungs clear to auscultation bilaterally. Gastrointestinal: Abdomen soft, nontender, with normoactive bowel sounds. No rebound or guarding. Neurological: Awake. Alert. Nonfocal, nonlateralizing. Skin: Diffuse's maculopapular rash with areas of excoriation, no fluctuance. Convalescing on arms and face, appears on torso anteriorly and posteriorly and mildly on legs. Normal color. No pallor. Musculoskeletal: No pedal edema. Full range of motion extremities. Const Vital Signs: 06/09/22 09:59 Temperature 98 F Temperature Source Temporal Pulse Rate 111 H Respiratory Rate 18 Blood Pressure 139/83 H Blood Pressure Mean 101 Pulse Ox 96 Oxygen Delivery Method Room Air MDM MDM MDM Narrative Medical decision making narrative: I had discussed the use of steroids again and a burst for 7 to 10 days with the patient, but in closer look with her having small lesions in the webspaces between her fingers, and the differential diagnosis is scabies. She will be treated with Elimite lotion. She will follow-up with her primary care physician. She was told to wash all her sheets and clothing again. I feel she can be discharged safely home with follow-up. Return instructions were reviewed. Disposition is discharged home in stable condition. Discharge Plan Triage Chief Complaint: Rash ED Provider: Richard Robison Dx/Rx/DC Orders Clinical Impression: Scabies, Rash Instructions: ED Scabies Prescriptions: New permethrin [Elimite] 5 % cream 1 applic topical Q14D Qty: 60 0RF Rx Instructions: Apply initially to skin and remove after 8 to 14 hours. Apply second treatment 7-14 days after first treatment if rash remains No Action mometasone-formoterol [Dulera] 100-5 mcg/actuation HFA aerosol inhaler 2 puff INHALATION BID albuterol sulfate 1 INHALER inhaler 1 - 2 puff INHALATION Q4H PRN PRN (Reason: Sob &/Or Wheezing) levothyroxine 88 mcg tablet 100 mcg PO DAILY paroxetine HCl 10 mg tablet 40 mg PO DAILY trazodone 100 tablet 100 mg PO QHS PRN PRN (Reason: Sleep) Primary Care Provider: Carlos Shultz Referrals: Carlos Shultz MD [Primary Care Provider] - 1 Week if not improving Disposition Disposition: Home, Self Care Discharge Date/Time: 06/09/22 11:20
== END 2022-06-09 11:20 | disposition home or self-care (01) ==
LOC: ED 10:53
PROVIDERS: Emergency Provider Emergency Medicine; PCP Family Medicine; Visit Provider Emergency Medicine
DX: B86 Scabies (principal); M06.9 Rheumatoid arthritis, unspecified; M79.7 Fibromyalgia; J45.909 Unspecified asthma, uncomplicated; F32.A Depression, unspecified; E03.9 Hypothyroidism, unspecified; Z79.899 Other long term (current) drug therapy; F17.210 Nicotine dependence, cigarettes, uncomplicated
CPT/HCPCS: 99282

== ENCOUNTER 2022-08-31 09:26 | Emergency (ER) | payer MEDICAID, SELFPAY ==
[2022-08-31 09:29] VITALS: BP 157/77; PULSE 76; RESP 18; TEMP 36.1; O2SAT 98; BMI 36.8
[2022-08-31 09:33] VITALS: O2SAT 98
--- NOTE | 2022-08-31 09:55 | EX.ED.DYSGE1 ---
HPI History of Present Illness Chief Complaint: Cold Sx Narrative Narrative: 46-year-old female past medical history of rheumatoid arthritis, asthma, according to EMR fibromyalgia and ADHD, presents with upper respiratory infection symptoms that she has had for the last week. While she states those have improved over time, she states every morning since Monday, 2 days ago she awakes with a migraine headache. She took her Tylenol arthritis without relief. She rates it as a 12 out of 10. No exacerbating or alleviating factors. She called EMS today to bring her to the emergency department. She endorses photophobia and phonophobia. No fevers or chills. She has had nasal congestion and runny nose. She also states she has had nausea and vomiting over the last week. [facility] Medical History (Updated 08/31/22 @ 11:56 by Richard Robison MD) Asthma Depression Fibromyalgia Hypothyroid Rheumatoid arthritis Status asthmaticus Home Medications albuterol sulfate 90 mcg/actuation aerosol inhaler 1 - 2 puff inhalation Q4H PRN PRN Sob &/Or Wheezing 06/26/16 [History Last Taken 07/30/18 02:30 2 puffs] levothyroxine 88 mcg tablet 100 mcg PO DAILY thyroid 02/15/18 [History Last Taken 07/29/18 06:00 100 mcg] mometasone-formoterol HFA 100 mcg-5 mcg/actuation aerosol inhaler (Dulera) 2 puff inhalation BID asthma 02/15/18 [History Last Taken 07/29/18 19:00 2 puffs] paroxetine HCl 10 mg tablet 40 mg PO DAILY anxiety 02/15/18 [History Last Taken 07/29/18 08:00 40 mg] trazodone 100 mg tablet 100 mg PO QHS PRN PRN Sleep 07/30/18 [History Last Taken Unknown] permethrin 5 % topical cream (Elimite) 1 applic topical Q14D 2 doses #60 grams 06/09/22 [Rx Last Taken Unknown] Allergy/AdvReac Type Severity Reaction Status Date / Time quetiapine fumarate Allergy Anaphylaxis Verified 06/09/22 10:01 [From Seroquel] fentanyl AdvReac Unknown Verified 06/09/22 10:01 haloperidol [From Haldol] AdvReac makes me Verified 06/09/22 10:01 angry Family History Mother Diabetes Son Thyroid disorder Surgical History S/P S/P tubal ligation Social History Smoking Status: Current every day smoker tobacco type: cigarettes alcohol intake: never ROS ROS ED ROS Narrative Constitutional: No fever, no chills. HEENT: No sore throat. No neck pain. No loss of vision. Nasal congestion and rhinorrhea. Sinus pain. Cardiovascular: No chest pain. No palpitations. No pedal edema. Respiratory: No cough, no shortness of breath. Abdominal: No abdominal pain. Positive nausea. Positive vomiting. Genitourinary: No dysuria. No hematuria. Musculoskeletal: No myalgias. No arthralgias. Neurologic: Positive headaches. No dizziness. No lightheadedness. Skin: No rash. No change in color. Psychiatric: No depression. No anxiety. EXAM Physical Exam Narrative Exam Narrative: Afebrile. Vital signs noted. HEENT: Normocephalic. Atraumatic. PERRL, EOMI. Neck soft and supple. No point tenderness or step off. No meningismus. Mild tenderness to percussion over maxillary sinuses and ethmoid sinuses. Cardiovascular: Regular rate and rhythm. No murmurs, rubs, or gallops appreciated. Respiratory: No tachypnea. Lungs clear to auscultation bilaterally. Gastrointestinal: Abdomen soft, nontender, with normoactive bowel sounds. No rebound or guarding. Neurological: Awake. Alert. Nonfocal, nonlateralizing. Skin: No rash. Normal color. No pallor. Musculoskeletal: No pedal edema. Full range of motion extremities. Const Vital Signs: 08/31/22 09:29 08/31/22 09:33 Temperature 96.9 F L Temperature Source Temporal Pulse Rate 76 Respiratory Rate 18 Respiratory Effort Normal Respiratory Depth Normal Blood Pressure 157/77 H Blood Pressure Mean 103 Pulse Ox 98 Oxygen Delivery Method Room Air Room Air MDM MDM MDM Narrative Medical decision making narrative: Patient was administered IV fluids along with Compazine, Benadryl, and Toradol. I do feel that she probably has more of a sinus headache. I do not feel CT imaging is indicated. After migraine cocktail and IV fluids, patient rates her pain is a 0, and her headache is fully relieved. At this point in time, I feel she be discharged safely home with follow-up. Return instructions to the emergency department were reviewed. Disposition is discharged home in improved and stable condition. Discharge Plan Triage Chief Complaint: Cold Sx Other Complaint: Nausea/Vomiting/Diarrhea ED Provider: Richard Robison Dx/Rx/DC Orders Clinical Impression: Headache, migraine, URI (upper respiratory infection) Instructions: ED, Migraine (Classical), ED URI, Viral, No Abx (Adult) Prescriptions: No Action mometasone-formoterol [Dulera] 100-5 mcg/actuation HFA aerosol inhaler 2 puff INHALATION BID albuterol sulfate 1 INHALER inhaler 1 - 2 puff INHALATION Q4H PRN PRN (Reason: Sob &/Or Wheezing) levothyroxine 88 mcg tablet 100 mcg PO DAILY paroxetine HCl 10 mg tablet 40 mg PO DAILY trazodone 100 tablet 100 mg PO QHS PRN PRN (Reason: Sleep) permethrin [Elimite] 5 % cream 1 applic topical Q14D Qty: 60 0RF Rx Instructions: Apply initially to skin and remove after 8 to 14 hours. Apply second treatment 7-14 days after first treatment if rash remains Primary Care Provider: Carlos Shultz Referrals: Carlos Shultz MD [Primary Care Provider] - 3-5 Days Disposition Disposition: Home, Self Care
[2022-08-31] MEDS: Ketorolac 30 MG/ML Syringe IV (10:01)
[2022-08-31] MEDS: DiphenhydrAMINE 50 MG/ML Syringe 25 MG IV (10:01)
[2022-08-31] MEDS: 0.9% Normal Saline 1,000 ML 999 ML IV (10:02)
[2022-08-31] MEDS: proCHLORPERazine 10 MG/2 ML Vial IV (10:02)
== END 2022-08-31 12:09 | disposition home or self-care (01) ==
PROVIDERS: Emergency Provider Emergency Medicine; PCP Family Medicine; Visit Provider Emergency Medicine
DX: G43.909 Migraine, unspecified, not intractable, without status migrainosus (principal); J06.9 Acute upper respiratory infection, unspecified
CPT/HCPCS: 96374; 96375; 99285

== ENCOUNTER 2023-02-13 15:08 | Emergency (ER) | payer MEDICAID, SELFPAY ==
[2023-02-13] VITALS (8 sets, daily range): BP systolic 157; BP diastolic 71; PULSE 88–107; RESP 17–24; TEMP 36.6; O2SAT 90–94; BMI 38.6
[2023-02-13] MEDS: Ipratropium/Albuterol Sulfate 3 ML AMPUL.NEB INHALATION (15:36)
[2023-02-13 15:47] LABS: Absolute Lymphocyte Count 1.52 X10^3/uL (0.83-4.51); Absolute Neutrophil Count 5.2 X10^3/uL (2.0-7.7); Basophil# 0.04 X10^3/uL; Basophil% 0.6 % (0-1); Eosinophil# 0.06 X10^3/uL; Eosinophils% 0.8 % (0-5); Hematocrit 37.7 % (37-47); Hemoglobin 12.7 g/dL (12.0-15.0); Lymphocyte # 1.52 X10^3/ul (0.83-4.51); Lymphocyte % 21.3 % (19-41); Mean Corp Hgb Conc 33.7 g/dL (32-36); Mean Corpuscular Hgb 31.8 pg (27.0-32.0); Mean Corpuscular Volume 94.5 fL (81-99); Mean Platelet Vol. 9.8 fl (6.2-12.0); Monocyte# 0.29 X10^3/uL; Monocyte% 4.1 % (0-10); NRBC Flagged by Analyzer 0 % (0-5); Neutrophil # 5.22 X10^3/uL (2.7-7.7); Neutrophil % 72.9 % (47-70); Platelet Count 177 K/mm3 (150-450); RBC Distribution Width CV 13.1 % (11.6-14.6); RBC Distribution Width SD 44.8 fl (35.1-43.9); Red Blood Count 3.99 M/mm3 (4.2-5.4); White Blood Count 7.2 K/mm3 (4.4-11.0)
--- NOTE | 2023-02-13 15:50 | RAD_ITS ---
STUDY: X-RAY CHEST REASON FOR EXAM: Female, 47 years old. Cough TECHNIQUE: Frontal and lateral views of the chest. COMPARISON: 05/24/2019. FINDINGS: The lungs are clear and expanded. There is no demonstrated pleural abnormality. Normal size heart. Normal mediastinum and leighton. Normal visualized pulmonary arteries. Normal visualized aortic arch and descending thoracic aorta. Normal visualized thoracic spine. Normal visualized ribs, clavicles, and shoulders. There is no demonstrated abnormality of the visualized soft tissue structures of the upper abdomen. RAD/Chest PA and Lateral IMPRESSION: Normal x-ray examination of the chest. Electronically Signed: Rk Harrison MD at 17:00 EDT ,
--- NOTE | 2023-02-13 15:56 | ED.VIS.DYS ---
HPI History of Present Illness Chief Complaint: Shortness of Breath Informant: patient Onset/Context/Timing Onset: Today Context: sudden Timing: Continuous Quality: Positive for Dyspnea on exertion Worsened by: Exertion and - (Heat) Relieved by: - (Cool air) Associated Symptoms cough, rhinorrhea and sore throat; Negative for post nasal drip, ear pain, fever, chills, sweats, clear sputum, white sputum, yellow sputum or green sputum Chest Pain: Positive for Intermittent (With coughing) Narrative Narrative: Patient presents with shortness of breath that began today. Patient states it began when she woke up today. Patient states she has been trying her inhalers and aerosols at home with no improvement. Patient states her breathing is worse with laying flat and with exertion. Patient states it is also worse with the heat. Patient states it is better with a cool air. Patient admits to a cough but denies any sputum production. Patient denies any fevers or chills. Patient does admit to some rhinorrhea. Patient also admits to some pain in her throat and chest with coughing. PE Risk Factors: Negative for Cancer, OCP + Smoking + > 35, Prior DVT or PE, Recent immobilization, Recent surgery or Recent travel [facility] Medical History (Updated 02/13/23 @ 18:[address] Donald Stoner, DO) Asthma Depression Fibromyalgia Hypothyroid Rheumatoid arthritis Status asthmaticus Home Medications albuterol sulfate 90 mcg/actuation aerosol inhaler 1 - 2 puff inhalation Q4H PRN PRN Sob &/Or Wheezing 06/26/16 [History Last Taken 07/30/18 02:30 2 puffs] levothyroxine 88 mcg tablet 100 mcg PO DAILY thyroid 02/15/18 [History Last Taken 07/29/18 06:00 100 mcg] mometasone-formoterol HFA 100 mcg-5 mcg/actuation aerosol inhaler (Dulera) 2 puff inhalation BID asthma 02/15/18 [History Last Taken 07/29/18 19:00 2 puffs] paroxetine HCl 10 mg tablet 40 mg PO DAILY anxiety 02/15/18 [History Last Taken 07/29/18 08:00 40 mg] trazodone 100 mg tablet 100 mg PO QHS PRN PRN Sleep 07/30/18 [History Last Taken Unknown] permethrin 5 % topical cream (Elimite) 1 applic topical Q14D 2 doses #60 grams 06/09/22 [Rx Last Taken Unknown] prednisone 20 mg tablet 60 mg PO DAILY #15 TABLETS 02/13/23 [Rx Last Taken Unknown] Allergy/AdvReac Type Severity Reaction Status Date / Time quetiapine fumarate Allergy Anaphylaxis Verified 02/13/23 15:09 [From Seroquel] fentanyl AdvReac Unknown Verified 02/13/23 15:09 haloperidol [From Haldol] AdvReac makes me Verified 02/13/23 15:09 angry Family History Mother Diabetes Son Thyroid disorder Surgical History S/P S/P tubal ligation Social History Smoking Status: Current every day smoker tobacco type: cigarettes alcohol intake: never ROS ROS ED Constitutional Constitutional ED: Denies chills or fever(s) Eyes Eyes: Denies blurry vision or change in vision ENT ENT ED: Reports rhinorrhea and sore throat Cardiovascular Cardiovascular: Denies chest pain or palpitations Respiratory/Chest Respiratory/Chest: Reports cough and dyspnea Gastrointestinal Gastrointestinal: Denies nausea or vomiting Genitourinary Genitourinary ED: Denies dysuria or hematuria Musculoskeletal Musculoskeletal: Reports back pain; Denies neck pain Integumentary Denies abscess or rash Neurologic Neurologic: Denies headache(s) or weakness Allergic/Immunologic Allergic/Immunologic ED: Denies mouth swelling or urticaria EXAM Physical Exam Const Vital Signs: 02/13/23 15:09 02/13/23 15:17 02/13/23 15:19 Temperature 98 F Temperature Source Temporal Pulse Rate 107 H Respiratory Rate 24 H Respiratory Effort Respiratory Pattern Blood Pressure 157/71 H Blood Pressure Mean 99 Pulse Ox 91 90 93 Oxygen Delivery Method Room Air Room Air Nasal Cannula Oxygen Flow Rate (L/min) 2 02/13/23 15:21 02/13/23 15:39 02/13/23 17:50 Temperature Temperature Source Pulse Rate 94 Respiratory Rate 20 H Respiratory Effort Short of Breath Labored Respiratory Pattern Tachypnea Tachypnea Blood Pressure Blood Pressure Mean Pulse Ox 94 Oxygen Delivery Method Nasal Cannula Oxygen Flow Rate (L/min) 2 02/13/23 18:17 Temperature Temperature Source Pulse Rate 88 Respiratory Rate 17 Respiratory Effort Respiratory Pattern Blood Pressure Blood Pressure Mean Pulse Ox Oxygen Delivery Method Oxygen Flow Rate (L/min) Positive well nourished and well developed General Appearance ED: well developed HEENT Reports moist mucous membranes Neck supple and no JVD Resp normal respiratory effort Auscultation: wheezes expiratory wheezes and throughout Cardio regular rate and regular rhythm GI normal to inspection, nondistended, normoactive bowel sounds and non-tender Palpation: soft Extremity normal to inspection General Extremety ED: Negative for edema or tenderness General Extremity: Negative for edema Neuro oriented x3, CN's II-XII intact bilaterally and no sensory deficits noted Sensorium / Orientation: alert Motor Exam: strength 5/5 throughout Psych mental status grossly normal Skin no rashes or lesions noted MDM MDM MDM Narrative Medical decision making narrative: Differential diagnosis includes COPD exacerbation, asthma exacerbation, pneumonia, pneumothorax, cardiac dysrhythmia, cardiac ischemia, viral upper respiratory infection, COVID infection, and influenza infection. CBC will be obtained to assess for leukocytosis and anemia. Basic metabolic profile will be obtained to assess for electrolyte abnormality and renal function. D-dimer will be obtained to assess for pulmonary embolism. High-sensitivity troponin will be obtained to assess for cardiac ischemia. PA and lateral chest x-ray will be obtained to assess for pneumonia. EKG will be obtained to assess for cardiac dysrhythmia and cardiac ischemia. COVID-19 rapid antigen will be obtained to assess for COVID infection. Influenza A and influenza B antigens will be obtained to assess for influenza infection. Lab Data Attestation: I reviewed the patient's lab results. Lab results narrative: CBC was reviewed and was within normal limits. Basic metabolic profile was reviewed and was essentially within normal limits. High-sensitivity troponin was reviewed and was normal. D-dimer was reviewed and was elevated at 1.06. COVID-19 rapid antigen was reviewed and was negative. Influenza A and influenza B antigens were reviewed and were negative. Labs: Laboratory Results - last 24 hr 02/13/23 02/13/23 02/13/23 15:38 15:38 15:38 WBC 7.2 RBC 3.99 L Hgb 12.7 Hct 37.7 MCV 94.5 MCH 31.8 MCHC 33.7 RDW Std Deviation 44.8 H RDW Coeff of Lola 13.1 Plt Count 177 MPV 9.8 Immature Gran % (Auto) 0.300 Neut % (Auto) 72.9 H Lymph % (Auto) 21.3 [place] % (Auto) 4.1 Eos % (Auto) 0.8 Baso % (Auto) 0.6 Absolute Neuts (auto) 5.2 Absolute Lymphs (auto) 1.52 Nucleated RBC % 0 D-Dimer Quant (PE/DVT) 1.06 H* Sodium 142 Potassium 3.4 L Chloride 110 H Carbon Dioxide 22.0 Anion Gap 10 BUN 11 Creatinine 0.82 Estim Creat Clear Calc 73.24 Est GFR (MDRD) Af Amer 96 Est GFR (MDRD) Non-Af 79 BUN/Creatinine Ratio 13.4 Glucose 95 Calcium 9.3 Troponin I High Sens 4 Radiography Diagnostic Testing: Clinical Impression(s) from Imaging Studies Chest X-Ray 02/13/23 15:50 IMPRESSION: Normal x-ray examination of the chest. Electronically Signed: Rk Harrison MD at 17:00 EDT , Chest CTA 02/13/23 16:39 IMPRESSION: Normal CTA chest examination, without a demonstrated pulmonary embolism or arterial dissection. Electronically Signed: Rk Harrison MD at 17:41 EDT , Portable 1 view chest x-ray was obtained. On my independent interpretation, lung [place] are clear. There is normal cardiac silhouette. Bony thorax is normal. There is no acute process noted. Radiologist also interpreted the x-ray and agrees. CTA of the chest was obtained because of the elevated D-dimer. There is no evidence of pulmonary embolism or aortic dissection. This was interpreted by the radiologist and was also independently reviewed by myself. EKG Initial EKG: Attestation: I personally reviewed and interpreted this EKG as follows: Interpretation: Sinus Rhythm (99) and Non-Specific ST Changes Comments: EKG was obtained. On my independent interpretation, it showed a normal sinus rhythm with a rate of 99. NE interval, QRS interval, and QTc intervals were all normal. [place] was normal. There are nonspecific ST-T wave changes. Prior EKG tracings: available for review Prior: Unchanged (01/04/2022) Treatment and Re-Evaluation :: Patient was given a DuoNeb aerosol here. Patient was given a dose of prednisone. Patient was still somewhat short of breath on reevaluation. Patient's pulse oximeter dropped to 89% with ambulation. Patient was given a repeat dose of albuterol. Patient was feeling better after this. Patient states she wants to go home. Patient was instructed to follow-up with her primary care physician in 5 to 7 days. Patient was given a prescription for prednisone. Patient was instructed return if worse in any way. Patient understood and was agreeable with the plan. All questions were answered. Discharge Plan Triage Chief Complaint: Shortness of Breath ED Provider: Donald Stoner Dx/Rx/DC Orders Clinical Impression: COPD exacerbation, Asthma Instructions: ED COPD Flare Prescriptions: New prednisone 20 mg tablet 60 mg PO DAILY Qty: 15 0RF No Action mometasone-formoterol [Dulera] 100-5 mcg/actuation HFA aerosol inhaler 2 puff INHALATION BID albuterol sulfate 1 INHALER inhaler 1 - 2 puff INHALATION Q4H PRN PRN (Reason: Sob &/Or Wheezing) levothyroxine 88 mcg tablet 100 mcg PO DAILY paroxetine HCl 10 mg tablet 40 mg PO DAILY trazodone 100 tablet 100 mg PO QHS PRN PRN (Reason: Sleep) permethrin [Elimite] 5 % cream 1 applic topical Q14D Qty: 60 0RF Rx Instructions: Apply initially to skin and remove after 8 to 14 hours. Apply second treatment 7-14 days after first treatment if rash remains Primary Care Provider: Carlos Shultz Referrals: Carlos Shultz MD [Primary Care Provider] - 5-7 Days Disposition Disposition: Home, Self Care
[2023-02-13] MEDS: predniSONE 20 MG Tablet 60 MG PO (15:57)
[2023-02-13 16:25] LABS: D-Dimer Quantitative (DVT/PE) 1.06 FEU/ug/m (0.27-0.49)
[2023-02-13 16:33] LABS: Anion Gap 10 (5-15); BUN 11 mg/dL (7-18); BUN/Creat Ratio 13.4 RATIO (10-20); Calcium,Total 9.3 mg/dL (8.5-10.1); Chloride 110 mmol/L (98-107); Creatinine, Serum 0.82 mg/dL (0.55-1.02); EST Glomerular Filtration Rate 79 mL/min (>60); Est Glom Filt Rate - Afr Amer 96 mL/min (>60); Estimated Creatinine Clearance 73.24 ml/min; Glucose 95 mg/dL (74-106); Potassium 3.4 mmol/L (3.5-5.1); Sodium Level 142 mmol/L (136-145); Troponin-I HS 4 pg/mL (3.0-54.0)
[2023-02-13] MEDS: HYDROcodone Bitartrate/Apap 5/325 Tablet PO (16:39)
--- NOTE | 2023-02-13 16:39 | CT_ITS ---
STUDY: CTA CHEST REASON FOR EXAM: Female, 47 years old. Elevated D-dimer RADIATION DOSAGE (If Supplied By Facility): CTDIvol = ( 12.03 ) mGy, DLP = ( 522.06 ) mGycm TECHNIQUE: The examination was performed with the intravenous administration of IV 100mL [id number]. Post-processing of the angiographic images was performed, with multiplanar reformation and 3D reconstruction. Individualized dose optimization techniques were used for this CT. COMPARISON: None. FINDINGS: Normal enhancement of the main pulmonary artery and right and left pulmonary arteries. Normal enhancement of the bilateral peripheral pulmonary arteries. There is no demonstrated pulmonary embolism. Normal thoracic aorta and visualized great vessels. There is no demonstrated aortic dissection. Normal heart and pericardium. Normal mediastinum. Normal hilar regions. Normal visualized trachea and bronchi. The lungs are well expanded. Normal pulmonary parenchyma. Normal pleura. Normal chest wall structures. Normal osseous structures. Normal visualized upper abdomen. CT/CTA Chest W/WO Contrast IMPRESSION: Normal CTA chest examination, without a demonstrated pulmonary embolism or arterial dissection. Electronically Signed: Rk Harrison MD at 17:41 EDT ,
[2023-02-13] MEDS: Albuterol 2.5 MG/3 ML VIAL.NEB. INHALATION (18:16)
== END 2023-02-13 18:57 | disposition home or self-care (01) ==
PROVIDERS: Emergency Provider Emergency Medicine; PCP Family Medicine; Visit Provider Emergency Medicine
DX: J44.1 Chronic obstructive pulmonary disease with (acute) exacerbation (principal); J45.909 Unspecified asthma, uncomplicated; Z79.899 Other long term (current) drug therapy; E03.9 Hypothyroidism, unspecified; Z79.51 Long term (current) use of inhaled steroids; F17.210 Nicotine dependence, cigarettes, uncomplicated
CPT/HCPCS: 71046; 71275; 80048; 84484; 85025; 85379; 87428; 93005; 94640; 99283; Q9967